=== PATIENT | male | born 1945 | race Caucasian/White ===

== ENCOUNTER 2016-10-10 17:50 | Emergency (ER) | payer MEDICARE, OTHER ==
[2016-10-10 18:14] VITALS: BP 80/58
[2016-10-10] MEDS ORDERED: NS 0.9% 1000 ML* 1,000 ML BOLUS ONE ×2 (18:25→19:05)
--- NOTE | 2016-10-10 18:40 | UC ---
Minor Trauma HPI - HPI Summary HPI Summary: fall 1 1/2 days ago unwitnessed seemed ok yesterday today c/o LUQ abd pain and has had vomiting according to son he is confused hx etoh abuse legally blind - History of Current Complaint Chief Complaint: UCTrauma Stated Complaint: RIB AND FACIAL INJURY WITH VOMITING Time Seen by Provider: 10/10/16 18:01 Hx Obtained From: Patient, Family/Territory Manager Onset/Duration: Sudden Onset Onset Of Pain: Immediate Severity Initially: Mild Severity Currently: Moderate Pain Intensity: 7 Pain Scale Used: 0-10 Numeric Mechanism Of Injury: Fall From A Standing Position Aggravating Factor(s): Nothing Alleviating Factor(s): Nothing Associated Signs And Symptoms: Positive: Ecchymosis - Allergies/Home Medications Allergies/Adverse Reactions: Allergies Allergy/AdvReac Type Severity Reaction Status Date / Time Amoxicillin Allergy Rash Verified 06/06/15 15:48 Penicillins Allergy Altered Verified 10/10/16 17:59 Mental Status Home Medications: Home Medications Calcium W/ Vitamins D & K [Calcium + D + K 750-500-40 mg-Unt-Mcg] 10/10/16 [ History] Gabapentin CAP(*) [Neurontin 100 mg CAP(*)] 10/10/16 [History] Melatonin 10/10/16 [History] PMH/Surg Hx/FS Hx/Imm Hx Previously Healthy: Yes Endocrine History Of: Denies: Diabetes, Thyroid Disease Cardiovascular History Of: Denies: Cardiac Disorders, Hypertension Respiratory History Of: Denies: COPD, Asthma GI/ History Of: Denies: Ulcer - Surgical History Surgical History: Yes Surgery Procedure, Year, and Place: 4 surgeries on RIGHT foot. Hip Replacement LEFT - Family History Known Family History: Positive: Hypertension - Social History Alcohol Use: Daily Alcohol Amount: "every Night" rum Substance Use Type: None, Marijuana Substance Use Comment - Amount & Last Used: "Pot when I can get it" Smoking Status (MU): Never Smoked Tobacco - Immunization History Most Recent Influenza Vaccination: 2016 Review of Systems Constitutional: Negative Skin: Bruising Eyes: Negative ENT: Negative Respiratory: Negative Cardiovascular: Negative Gastrointestinal: Abdominal Pain, Vomiting Genitourinary: Negative Motor: Negative Neurovascular: Negative Musculoskeletal: Negative Neurological: Negative Psychological: Negative All Other Systems Reviewed And Are Negative: Yes Physical Exam Triage Information Reviewed: Yes Appearance: Ill-Appearing Vital Signs: Initial Vital Signs Temp 98.1 F 10/10/16 18:01 Pulse 141 10/10/16 18:01 Resp 18 10/10/16 18:01 BP 80/58 10/10/16 18:01 Pulse Ox 92 10/10/16 18:01 Eyes: Positive: Conjunctiva Clear ENT: Positive: Hearing grossly normal Neck: Positive: Supple Respiratory: Positive: Lungs clear, Normal breath sounds, No respiratory distress, No accessory muscle use Cardiovascular: Positive: RRR, No Murmur, Tachycardia Abdomen Description: Negative: Nontender - tender LUQ, CVA Tenderness (R), CVA Tenderness (L) Bowel Sounds: Positive: Present Musculoskeletal: Positive: No Edema Neurological: Positive: Alert Psychological Exam: Normal Skin Exam: Normal - initially diaphoretic Re-Evaluation - Re-Evaluation First Eval Re-Evaluation Time: 19:06 Change: Improved - [place] arrived, after about one liter of NS BP 11/69, pulse 100 Pox 97% 2 L NC Minor Trauma Course/Dx - Course Course Of Treatment: d/w Dr. Isbell. He concurs that patient should be transported to a trauma center. Called [facility] transfer center...put through to ED and spoke to attending. Pt accepted - Differential Dx/Diagnosis Provider Diagnoses: fall. hypotension/tachycardia. LUQ abdominal pain/ ecchymosis Discharge - Discharge Plan Condition: Guarded Disposition: TRANS HIGHER LVL OF CARE FAC Referrals: Ana Luisa Berg MD [Primary Care Provider] - Images Head: 1 - contusion Front/Back of Body, Lg ([place]): 1 - ecchymosis 2 - ecchymosis 3 - tender
== END 2016-10-10 19:10 | disposition short-term general hospital (02) ==
LOC: UCEAST 17:50
DX: R10.12 Left upper quadrant pain (principal); S30.1XXA Contusion of abdominal wall, initial encounter; W19.XXXA Unspecified fall, initial encounter; Y93.9 Activity, unspecified; Y92.9 Unspecified place or not applicable; I95.9 Hypotension, unspecified; R00.0 Tachycardia, unspecified; H54.8 Legal blindness, as defined in USA; Z87.898 Personal history of other specified conditions; F12.90 Cannabis use, unspecified, uncomplicated
CPT/HCPCS: 93005; 96360; 96361; 99213; G0463

== ENCOUNTER 2017-03-10 14:14 | Inpatient (IN) | payer MEDICARE, OTHER ==
[2017-03-10] MEDS ORDERED: Diltiazem IV* 5 MG/ML 5 ML VIAL (for loading dose/IV Push) (25 MG) IV SLOW PU ONE (15:20)
[2017-03-10 15:28] LABS: Hematocrit 41 % (42-52); Hemoglobin 13.6 g/dl (14.0-18.0); Mean Corpuscular HGB Conc 34 g/dl (31-36); Mean Corpuscular Hemoglobin 34 pg (27-31); Mean Corpuscular Volume 102 fL (80-94); Mean Platelet Volume 10 um3 (7.4-10.4); Red Blood Count 4.01 10^6/ul (4.0-5.4); Red Cell Distribution Width 14 % (10.5-15); White Blood Count 6.3 10^3/ul (3.5-10.8)
[2017-03-10 15:41] LABS: Troponin I 0.01 ng/mL (<0.04)
[2017-03-10 15:43] LABS: Albumin 3.8 g/dL (3.2-5.2); BUN/Creatinine Ratio 14.1 (8-20); Calcium 9.1 mg/dL (8.6-10.3); EGFR African American 66.8 (>60); Globulin 2.9 g/dL (2-4); Potassium 4.4 mmol/L (3.5-5.0); Total Bilirubin 0.6 mg/dL (0.2-1.0); Total Protein 6.7 g/dL (6.4-8.9)
--- NOTE | 2017-03-10 15:49 | RAD ---
Indication: Arrhythmia. Single frontal view of the chest performed at 1544 hours was reviewed. No prior study. No mediastinal shift is noted. Heart is of normal size and configuration. Lung morgan appear clear. IMPRESSION: NO ACTIVE CARDIOPULMONARY DISEASE IS NOTED.
[2017-03-10 15:52] LABS: TSH (Thyroid Stimulating Horm) 3.53 mcIU/mL (0.34-5.60)
[2017-03-10] MEDS ORDERED: Gabapentin CAP(*) 300 MG PO ONE (16:20)
[2017-03-10] MEDS ORDERED: Metoprolol Tartrate IV* 1 MG/ML 5 ML VIAL IV PRN (16:26)
[2017-03-10] MEDS ORDERED: Ondansetron INJ* 2 MG/ML VIAL IV PRN (16:34)
[2017-03-10] MEDS ORDERED: NS 0.9% 1000 ML* 1,000 ML IV ONE (16:35)
[2017-03-10] MEDS ORDERED: Acetaminophen TAB* 325 MG PO PRN (16:41)
[2017-03-10] MEDS ORDERED: NS 0.9% 1000 ML* 1,000 ML IV SCH (16:45)
[2017-03-10 16:52] LABS: Magnesium 1.7 mg/dL (1.9-2.7)
[2017-03-10] MEDS ORDERED: Metoprolol Tartrate TAB* 25 MG PO SCH (17:00)
[2017-03-10] MEDS ORDERED: Thiamine IV* 100 MG, Folic Acid IV* 1 MG, Multiple Vitamin IV ADULT* 10 ML in NS 0.9% 1... IV ONE (17:09)
[2017-03-10] MEDS ORDERED: Magnesium Oxide TAB* 400 MG PO ONE (17:10)
[2017-03-10] MEDS ORDERED: MELATONIN 10 MG PO PRN (17:48)
[2017-03-10] MEDS ORDERED: LORazepam TAB(*) 1 MG PO SCH (18:00)
--- NOTE | 2017-03-10 18:25 | HP ---
HISTORY AND PHYSICAL:* ADDENDUM: Mr. Martinez is a 71-year-old male with a history of laryngeal cancer, who also has a history of significant alcohol use on a daily basis and who presents today after he was seen on a 6-month followup with Dr. Berg and was noted to have asymptomatic atrial fibrillation with rapid ventricular response. The patient is going to be placed on observation. Currently, his heart rate is controlled with Cardizem. Cardiology will see him for consultation. For further details of the patient's presentation and plan, please see history and physical dictated by Mimi Rodriguez NP, on 03/10/17, with which I agree. [id number]/[facility] #: [id number] MTDNhan
[2017-03-10] MEDS: Gabapentin CAP(*) 100 MG PO SCH (18:35)
[2017-03-10] MEDS: Apixaban* 5 MG TAB PO SCH (20:45)
[2017-03-10] MEDS: Metoprolol Tartrate TAB* 25 MG PO SCH (20:46)
[2017-03-10] MEDS: traZODone TAB* 50 MG TAB PO SCH (20:46)
--- NOTE | 2017-03-10 21:51 | HP ---
ATTENDING PHYSICIAN ADDENDUM NOW INCLUDED ON THIS REPORT CC: Ana Luisa Berg MD* MEDICINE HISTORY AND PHYSICAL: DATE OF ADMISSION: 03/09/17 PRIMARY CARE PHYSICIAN: Ana Luisa Berg MD PROVIDER: Kaylyn Mills NP ATTENDING PHYSICIAN: Alysia Mendez MD *(dictated by Kaylyn Mills NP) CONSULTING PHYSICIAN: Markos Kruse MD, Cardiology CHIEF COMPLAINT: Sent by PCP for new-onset AFib. HISTORY OF PRESENT ILLNESS: Mr. Martinez is a 71-year-old male patient who moved here from [place] approximately 2 years ago to be closer to his son. He reportedly did not receive good care in [place] and since moving here, has had a primary battery container finishing hand who has accompanied the patient and is helping to provide some of the history. Mr. Martinez saw Dr. Berg this morning for a routine 6 months checkup. During the doctor's assessment, she noted that he had a regular rate rhythm. An EKG was done, and the patient was found to be in AFib with rapid RVR. Here in the ER, the patient had noted rates up to 160. He remained asymptomatic and continues to deny any chest pain, dizziness, shortness of breath, nausea, vomiting. He denies any recent fever, chills, or cold symptoms. He denies any abdominal pain, nausea, vomiting, diarrhea. He denies any orthopnea, difficulty sleeping, edema. He denies any dysuria, focal weakness, or sensory loss. He is legally blind. In the ER, the patient was treated with diltiazem and was able to achieve better rate control and he is certainly in the 80s to low 100s for his heart rate. PAST MEDICAL HISTORY: 1. Laryngeal cancer diagnosed in 1995. 2. Previous head and neck cancer. 3. 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 4. Major depressive disorder. 5. Alcohol abuse with alcohol-induced mood disorder. 6. History of rib fractures in September 2016. 7. The patient is legally blind. 8. Insomnia. 9. BPH. 10. Seborrheic dermatitis. 11. Pityriasis versicolor. 12. Tinea cruris. 13. 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 14. History of partial glossectomy related to squamous cell cancer. HOME MEDICATIONS: 1. Calcium vitamin D supplement 1 tab daily. 2. Ibuprofen 200 mg q.6 hours p.r.n. 3. Melatonin 10 mg at bedtime p.r.n. 4. Triamcinolone 0.025% cream 1 application topical daily p.r.n. 5. Ketoconazole 2% cream 1 application topical twice a week. 6. Cholecalciferol 50,000 units monthly. 7. Lindsay 5-325 one tab b.i.d. p.r.n. 8. Trazodone 75 mg at bedtime. 9. Omeprazole 20 mg daily. 10. Gabapentin 300 mg q.a.m. and 200 mg q.p.m. 11. Fluoxetine 20 mg daily. 12. Tamsulosin 0.4 mg daily. ALLERGIES: Include PENICILLIN and AMOXICILLIN, which causes a rash. FAMILY HISTORY: The patient is unable to provide, but denies any previous history of cancer, diabetes, or heart diseases in the family that he is aware of. SOCIAL HISTORY: The patient reports former tobacco use he states many years ago when he was 12 years old. He denies any current tobacco use. He reports drinking "half a gallon of rum each night." The patient's primary battery container finishing hand states that it is mostly water and a little bit of rum, but unable to quantify how much. The patient does report daily marijuana use. He lives at home by himself. He does have a private primary battery container finishing hand, who is in the house for 3 and a half hours a day. Her name is Yaneth. His son, Sorin Martinez, is his healthcare proxy. The patient does appear to be mostly independent with ADLs, but does have a battery container finishing hand for help with assistance and setup. He does use a rolling walker. REVIEW OF SYSTEMS: As per HPI. A 14-point review of systems was completed. All pertinent positives are included in the HPI, all others not mentioned are negative. PHYSICAL EXAMINATION GENERAL: Mr. Martinez is a very pleasant older male patient who is lying in the ED stretcher, in no acute distress. He is well-developed, well-nourished. VITAL SIGNS: Temperature 98, heart rate 84, respiratory rate 18, blood pressure 101/63, O2 saturation is 97% on room air. HEENT: Head is atraumatic, normocephalic. Face is symmetrical. The patient is legally blind. Hearing appears grossly intact. External ears and nose are normal. Oral mucosa is moist. There is no oropharyngeal erythema or exudate noted. NECK: Supple. No lymphadenopathy appreciated. No JVD noted. The patient has full range of motion to the neck. RESPIRATORY: Lungs are clear to auscultation bilaterally. There is no accessory muscle use. CARDIAC: Irregularly irregular rate and rhythm. No murmurs, rubs, or gallops appreciated. There is no lower extremity edema. The patient has 1+ distal pulses to the lower extremities. ABDOMEN: Soft, nontender, nondistended. Bowel sounds are present times all 4 quadrants. MUSCULOSKELETAL: There is no clubbing or cyanosis. The patient appears to have full range of motion to all major joints. SKIN: Limited assessment, but appears grossly intact. NEURO: The patient moves all extremities. There are no acute neurological deficits. The patient follows commands. PSYCH: He is alert and oriented x3. Affect is appropriate. LABORATORY DATA/DIAGNOSTIC STUDIES: CBC: WBC 6.3, hemoglobin 13.6, hematocrit 41, MCV 102, MCH 34, platelet count 199. CMP: Sodium 138, potassium 4.4, chloride 104, carbon dioxide 29, BUN 19, creatinine 1.35, glucose 110. Lactic acid 1.3. Calcium 9.1, magnesium 1.7, total bilirubin 0.6, AST 16, ALT 9, alk phos 55. Troponin was 0.01. BNP 153, albumin 3.8, TSH 3.53. EKG shows atrial fibrillation. No ST elevations or T wave inversions noted. Chest x-ray: No active cardiopulmonary disease is noted. Limited previous medical records, but old medical records were reviewed. ASSESSMENT AND PLAN: Mr. Martinez is a 71-year-old male patient who presented today for evaluation following an incidental finding of atrial fibrillation with RVR in his physician's office. He is admitted to the telemetry for plan is as follows: 1. Atrial fibrillation with RVR. This appears to be a new diagnosis. The patient has no previously known history of atrial fibrillation. I suspect that he has been in and out of atrial fibrillation for a while. He remains asymptomatic. He has been presenting to the hospital with rates as high as 160. At this time, we will admit him, continue him on metoprolol b.i.d. with p.r.n. IV Lopressor for elevated heart rate. He is currently rate controlled and his pressures are on the softer side. I will continue him on IV fluids and he will be n.p.o. after midnight for potential cardioversion. Also ordered an echocardiogram. The patient has been started on apixaban. I did discuss with the patient his chronic alcohol use and states that this may have caused his atrial fibrillation as well as increased his risk for bleeds and adverse events if he continues to drink while being on apixaban. I did explain that his atrial fibrillation does increase his risk for stroke as well as increases his risk for bleeding. The patient was advised to quit alcohol drinking, and he verbalized understanding of this. The patient's CHAD2- VASc score is 1 for age 65 to 74. Monitor electrolytes with a goal keeping of potassium greater than 4 and magnesium greater than 2. 2. Macrocytic anemia. I will check a B12 and folate, but I do suspect this is likely secondary to the patient's alcohol abuse. He will receive a banana bag. We will also replace his magnesium. Also, check the patient overnight via the [facility] protocol to monitor for acute withdrawal. 3. Elevated creatinine. From previous labs, his creatinine does appear to be within the patient's baseline and we will attempt to obtain some records from Dr. Berg's office in order to better understand what the patient's baseline creatinine is. I do not see a diagnosis of chronic kidney disease on his from the office. However, I suspect that this is not new. 4. Hypomagnesemia. Replete with IV magnesium. Recheck in the morning. 5. Glossodynia. Continue gabapentin and p.r.n. hydrocodone. 6. History of depression. Continue trazodone and fluoxetine. 7. Insomnia. Continue p.r.n. melatonin. 8. Benign prostatic hypertrophy. Continue tamsulosin. 9. FEN. The patient is ordered a heart healthy diet. No caffeine. He will be n.p.o. for midnight for potential cardioversion. Continue IV hydration. 10. DVT prophylaxis. The patient will be started on apixaban. Continue education regarding alcohol cessation. 11. Code status, the patient is a full code. TIME SPENT: Time spent on the admission was approximately 60 minutes, more than half the time was spent [id number] with the patient obtaining history and physical, performing the physical examination, and reviewing the plan of care. Plan of care was discussed with my attending, Dr. Mendez, who is in agreement. KAYLYN MILLS NP ADDENDUM: Mr. Martinez is a 71-year-old male with a history of laryngeal cancer, who also has a history of significant alcohol use on a daily basis and who presents today after he was seen on a 6-month followup with Dr. Berg and was noted to have asymptomatic atrial fibrillation with rapid ventricular response. The patient is going to be placed on observation. Currently, his heart rate is controlled with Cardizem. Cardiology will see him for consultation. For further details of the patient's presentation and plan, please see history and physical dictated by Kaylyn Mills NP, on 03/10/17, with which I agree. ALYSIA MENDEZ MD [id number]/[facility] #: [id number]/[facility] #: [id number] ABRAN
[2017-03-11] MEDS: HYDROcodone/ACETAMIN 5-325 MG* 1 TAB PO PRN ×2 (06:06→17:34)
[2017-03-11 07:04] LABS: Hematocrit 38 % (42-52); Hemoglobin 12.6 g/dl (14.0-18.0); Mean Corpuscular HGB Conc 33 g/dl (31-36); Mean Corpuscular Hemoglobin 34 pg (27-31); Mean Corpuscular Volume 102 fL (80-94); Mean Platelet Volume 9 um3 (7.4-10.4); Red Blood Count 3.68 10^6/ul (4.0-5.4); Red Cell Distribution Width 14 % (10.5-15); White Blood Count 5.6 10^3/ul (3.5-10.8)
[2017-03-11 07:23] LABS: Anion Gap 5 mmol/L (2-11); BUN/Creatinine Ratio 14.5 (8-20); Blood Urea Nitrogen 17 mg/dL (6-24); CO2 Carbon Dioxide 25 mmol/L (22-32); Calcium 8.4 mg/dL (8.6-10.3); Chloride 108 mmol/L (101-111); EGFR African American 78.8 (>60); EGFR Non-African American 61.3 (>60); Glucose 91 mg/dL (70-100); Magnesium 2.1 mg/dL (1.9-2.7); Potassium 4.3 mmol/L (3.5-5.0); Sodium 138 mmol/L (133-145)
[2017-03-11 07:48] LABS: Folate > 20.00 ng/mL (>3.99)
[2017-03-11 07:49] LABS: Vitamin B12 534 pg/mL (180-914)
[2017-03-11] MEDS: Thiamine TAB* 100 MG TAB PO SCH (09:46)
[2017-03-11] MEDS: Multivitamins/Minerals TAB PO SCH (09:46)
[2017-03-11] MEDS: Omeprazole CAP* 20 MG PO SCH (09:46)
[2017-03-11] MEDS: FLUoxetine CAP* 20 MG PO SCH (09:46)
[2017-03-11] MEDS: Gabapentin CAP(*) 300 MG PO SCH (09:47)
[2017-03-11] MEDS: Calcium/Vitamin D TAB 250/125* TAB PO SCH (09:47)
[2017-03-11] MEDS: Metoprolol Tartrate TAB* 25 MG PO SCH ×2 (09:48→21:26)
[2017-03-11] MEDS: Tamsulosin CAP* 0.4 MG PO SCH (09:49)
[2017-03-11] MEDS: Folic Acid TAB* 1 MG PO SCH (09:49)
[2017-03-11] MEDS: Apixaban* 5 MG TAB PO SCH ×2 (09:49→21:26)
--- NOTE | 2017-03-11 10:14 | PN ---
Subjective Date of Service: 03/11/17 Interval History: Patient seen and examined at bedside. Son is accompanying patient. He denies CP , SOB, abd pain, n/v, dizziness. He feels well, except for "not sleeping well." No acute concerns at this time expressed by son or patient. Telemetry: Afib 80s-100s Objective Active Medications: Acetaminophen (Tylenol Tab*) 650 mg PO Q4H PRN PRN Reason: FEVER/PAIN Last Admin: 03/10/17 21:14 Dose: 650 mg Hydrocodone Bitart/Acetaminophen (Irving 5-325 Tab*) 1 tab PO BID PRN PRN Reason: PAIN Last Admin: 03/11/17 06:06 Dose: 1 tab Apixaban (Eliquis*) 5 mg PO BID [facility] Last Admin: 03/11/17 09:49 Dose: 5 mg Calcium/Vitamin D (Oscal D Tab 250/125*) 2 tab PO DAILY [facility] Last Admin: 03/11/17 09:47 Dose: 2 tab Fluoxetine HCl (Prozac Cap*) 20 mg PO DAILY [facility] Last Admin: 03/11/17 09:46 Dose: 20 mg Folic Acid (Folvite Tab*) 1 mg PO DAILY [facility] Last Admin: 03/11/17 09:49 Dose: 1 mg Gabapentin (Neurontin Cap(*)) 200 mg PO QPM [facility] Last Admin: 03/10/17 18:35 Dose: 200 mg Gabapentin (Neurontin Cap(*)) 300 mg PO QAM [facility] Last Admin: 03/11/17 09:47 Dose: 300 mg Lorazepam (Ativan Tab(*)) 0 mg PO .PER WAM SCORE [facility] PRN Reason: Protocol Metoprolol Tartrate (Lopressor Iv*) 5 mg IV Q6H PRN PRN Reason: HEART RATE/PULSE Metoprolol Tartrate (Lopressor Tab*) 25 mg PO BID [facility] Last Admin: 03/11/17 09:48 Dose: 25 mg Multivitamins/Minerals (Theragran/Minerals Tab*) 1 tab PO DAILY [facility] Last Admin: 03/11/17 09:46 Dose: 1 tab Non-Formulary Medication (Melatonin [Melatonin Cr]) 10 mg PO BEDTIME PRN PRN Reason: INSOMNIA Omeprazole (Prilosec Cap*) 20 mg PO DAILY [facility] Last Admin: 03/11/17 09:46 Dose: 20 mg Ondansetron HCl (Zofran Inj*) 4 mg IV Q6H PRN PRN Reason: NAUSEA/VOMITING Tamsulosin HCl (Flomax Cap*) 0.4 mg PO DAILY [facility] Last Admin: 03/11/17 09:49 Dose: 0.4 mg Thiamine HCl (Vitamin B-1 Tab*) 100 mg PO DAILY [facility] Last Admin: 03/11/17 09:46 Dose: 100 mg Trazodone HCl (Desyrel Tab*) 75 mg PO BEDTIME [facility] Last Admin: 03/10/17 20:46 Dose: 75 mg Triamcinolone Acetonide (Triamcinolone 0.025% Oint *) 1 applic TOPICAL DAILY PRN PRN Reason: ITCHING Vital Signs 03/10/17 03/10/17 03/10/17 16:21 16:24 16:30 Temperature 97.6 F Pulse Rate 104 117 92 Respiratory 18 18 14 Rate Blood Pressure 109/81 110/67 92/73 (mmHg) O2 Sat by Pulse 99 97 97 Oximetry 03/10/17 03/10/17 03/10/17 16:34 16:37 16:40 Temperature Pulse Rate 77 66 Respiratory 18 22 21 Rate Blood Pressure 100/76 104/50 (mmHg) O2 Sat by Pulse 95 97 Oximetry 03/10/17 03/10/17 03/10/17 16:45 16:50 16:55 Temperature Pulse Rate 88 80 73 Respiratory 17 13 17 Rate Blood Pressure 98/83 95/61 104/54 (mmHg) O2 Sat by Pulse 96 97 97 Oximetry 03/10/17 03/10/17 03/10/17 17:00 17:05 17:10 Temperature Pulse Rate 81 72 64 Respiratory 17 18 12 Rate Blood Pressure 101/63 115/96 94/41 (mmHg) O2 Sat by Pulse 97 97 97 Oximetry 03/10/17 03/10/17 03/10/17 17:15 17:20 17:26 Temperature Pulse Rate 75 76 57 Respiratory 17 18 Rate Blood Pressure 98/65 107/78 (mmHg) O2 Sat by Pulse 99 98 98 Oximetry 03/10/17 03/10/17 03/10/17 18:34 18:35 19:11 Temperature 97.4 F Pulse Rate 68 Respiratory 18 18 20 Rate Blood Pressure 97/71 (mmHg) O2 Sat by Pulse 96 Oximetry 03/10/17 03/10/17 03/10/17 19:50 19:56 20:35 Temperature 97.9 F 97.9 F Pulse Rate 111 111 Respiratory 20 20 16 Rate Blood Pressure 113/50 113/50 (mmHg) O2 Sat by Pulse 97 97 Oximetry 03/10/17 03/10/17 03/11/17 21:06 21:08 00:11 Temperature 97.5 F 97.5 F 97.2 F Pulse Rate 120 120 114 Respiratory 20 20 16 Rate Blood Pressure 110/74 110/74 100/80 (mmHg) O2 Sat by Pulse 94 94 98 Oximetry 03/11/17 03/11/17 03/11/17 05:04 06:06 07:13 Temperature 98.0 F 97.7 F Pulse Rate 103 67 Respiratory 16 16 16 Rate Blood Pressure 98/75 92/73 (mmHg) O2 Sat by Pulse 98 97 Oximetry 03/11/17 03/11/17 03/11/17 08:06 09:08 09:47 Temperature 98.5 F Pulse Rate 91 Respiratory 16 20 16 Rate Blood Pressure 116/82 (mmHg) O2 Sat by Pulse 97 Oximetry Oxygen Devices in Use Now: None Appearance: Male patient, lying in bed, NAD Eyes: - - legally blind Ears/Nose/Mouth/Throat: Mucous Membranes Moist Neck: NL Appearance and Movements; NL JVP Respiratory: Symmetrical Chest Expansion and Respiratory Effort, Clear to Auscultation Cardiovascular: - - irregularly irregular rate/rhythm Abdominal: NL Sounds; No Tenderness; No Distention Extremities: No Edema Neurological: Alert and Oriented x 3 Lines/Tubes/Other Access: Clean, Dry and Intact Peripheral IV Result Diagrams: 03/11/17 06:41 03/11/17 06:41 Assess/Plan/Problems-Billing Assessment: Mr. Martinez is a 71 yo male with a PMH significant for laryngeal and head/neck ca s/p partial glossectomy, ETOH abuse, and depression who was sent to the ED on 03/10 by PCP for new onset afib with RVR. - Patient Problems (1) Atrial fibrillation Code(s): I48.91 - UNSPECIFIED ATRIAL FIBRILLATION Comment: With RVR, now rate controlled Cardiology following No previously known dx Echocardiogram pending; no CLAUDAI or cardioversion, given pt's hx of head/neck ca Continue metoprolol, apixaban Patient advised to discontinue ETOH use with apixaban. Outpatient f/u with cardiology in 3 weeks. (2) Macrocytosis Code(s): D75.89 - OTHER SPECIFIED DISEASES OF BLOOD AND BLOOD-FORMING ORGANS Comment: Mild anemia, though suspect some dilutional effect B12 and folate normal, suspect related to chronic ETOH use Continue to trend HH Outpatient follow-up (3) Elevated serum creatinine Code(s): R79.89 - OTHER SPECIFIED ABNORMAL FINDINGS OF BLOOD CHEMISTRY Comment : Resolved (4) Hypomagnesemia Code(s): E83.42 - HYPOMAGNESEMIA Comment: Repleted, now resolved (5) Glossodynia Code(s): K14.6 - GLOSSODYNIA Comment: Continue gabapentin, prn Irving. (6) Depression Code(s): F32.9 - MAJOR DEPRESSIVE DISORDER, SINGLE EPISODE, UNSPECIFIED Comment: Continue fluoxetine, trazodone. (7) Insomnia Code(s): G47.00 - INSOMNIA, UNSPECIFIED Comment: Continue trazodone, prn melatonin (8) BPH (benign prostatic hyperplasia) Code(s): N40.0 - BENIGN PROSTATIC HYPERPLASIA WITHOUT LOWER URINRY TRACT SYMP Comment: Continue tamsulosin. (9) Legal blindness Code(s): H54.8 - LEGAL BLINDNESS, DEFINED IN [place] (10) DVT prophylaxis Status and Disposition: OBV to inpatient admit. Anticipate potential dc to home tomorrow.
--- NOTE | 2017-03-11 15:19 | ECHO ---
Patient: [facility] Rec#: [id number] : 1945 Date: 03/11/2017 Age: 71y Height: 167.64 cm / 66.0 in Weight: 93.89 kg / 206.9 lbs Sex: M BSA: 2.03 Room#: 440 Admit Date#: 03/10/2017 Type: Inpatient Referring: Mimi Rodriguez Reading: Rajesh Alex MD Pipe Insulator: Pat Calero RDCS CC: Ana Luisa Berg MD Transthoracic Echocardiogram Indication: A-Fib BP: 98/75 HR: 111 Rhythm: A-Fib Indications Atrial Fibrillation Findings History: Laryngeal, head, and neck cancer, major depressive disorder, ETOH abuse, legally blind, daily marijuana use, former smoker. Technical Comments: The study quality is fair. The study is technically limited due to patient body habitus. Completed at 1435. Left Ventricle: The left ventricular chamber size is normal. Mild concentric left ventricular hypertrophy is observed. Mild global hypokinesis of the left ventricle is observed. There is mildly decreased left ventricular systolic function.Of note normal LV contractility is noted on longer R to R intervals. The estimated ejection fraction is 45-50%. The assessment of diastolic function is non-diagnostic. Left Atrium: The left atrium is moderately dilated. Right Ventricle: The right ventricular cavity size is normal. The right ventricular global systolic function is mildly reduced. Right Atrium: The right atrium is mild to moderately dilated. Aortic Valve: The aortic valve is trileaflet. The aortic valve leaflets are mildly thickened. There is no evidence of aortic regurgitation. There is no evidence of aortic stenosis. Mitral Valve: The mitral valve leaflets are mildly thickened. There is mild to moderate mitral regurgitation. There is no evidence of mitral stenosis. Tricuspid Valve: The tricuspid valve leaflets are normal. There is mild to moderate tricuspid regurgitation. There is evidence of mild pulmonary hypertension. There is no tricuspid stenosis. Pulmonic Valve: The pulmonic valve appears normal. There is a trace pulmonic regurgitation. There is no pulmonic stenosis. Pericardium: There is no significant pericardial effusion. A pericardial fat pad is visualized. Aorta: There is no dilatation of the ascending aorta. There is no dilatation of the aortic arch. There is no dilation of the aortic root. Pulmonary Artery: The main pulmonary artery appears normal. Venous: The inferior vena cava appears normal in size. There is an approximate 50% respiratory change in the inferior vena cava dimension. Conclusions The study is technically limited due to patient body habitus. Completed at 1435. Mild concentric left ventricular hypertrophy is observed. Mild concentric left ventricular hypertrophy is observed. Mild global hypokinesis of the left ventricle is observed. There is mildly decreased left ventricular systolic function. The estimated ejection fraction is 45-50%. The left atrium is moderately dilated. There is mild to moderate mitral regurgitation. There is mild to moderate tricuspid regurgitation. There is evidence of mild pulmonary hypertension. There is a trace pulmonic regurgitation. The patient is noted to be in atrial fibrillation with a moderate ventricular response which may lead to underestimating LV systolic function. No reports of prior studies are offered for comparison. Measurements Name Value Normal Range RVIDd (AP) 2D 2.7 cm (0.9 - 2.6) RVDdMajor (2D) 3.7 cm (2.2 - 4.4) RAd ISD 4CH 5.4 cm (3.4 - 4.9) RA (A4C)W 5.2 cm (2.9 - 4.6) IVSd (2D) 1.1 cm (0.6 - 1) LVPWd (2D) 1.2 cm (0.6 - 1) LVIDd (2D) 4.6 cm (3.6 - 5.4) LVIDs (2D) 3.9 cm - LV FS (2D) 15 % (25 - 45) Aortic Annulus 1.8 cm (1.4 - 2.6) Ao root diameter (2D) 3.3 cm (2.1 - 3.5) Ascending Ao 3.1 cm (2.1 - 3.4) Aortic arch 3.2 cm (1.8 - 3.4) LA dimension (AP) 2D 5 cm (2.3 - 3.8) LAd ISD 4CH 6.2 cm (2.9 - 5.3) LA ISD 4CH W 4.9 cm (2.5 - 4.5) Name Value Normal Range LA ESV SP 4CH (A/L) 102 ml - LA ESV SP 2CH (A/L) 73 ml - LA ESV BP (A/L) 92 ml - LA ESV BP (A/L) index 45.51 ml/m2 - LA ESV SP 4CH (MOD) 93 ml - LA ESV SP 2CH (MOD) 70 ml - Name Value Normal Range MV E-wave Vmax 0.99 m/sec - MV deceleration time 166.5 msec - LV septal e' Vmax 0.07 m/sec - LV lateral e' Vmax 0.1 m/sec - LV E:e' septal ratio 14.14 ratio - LV E:e' lateral ratio 9.9 ratio - Name Value Normal Range AV Vmax 1 m/sec - AV VTI 16.8 cm - AV peak gradient 3.92 mmHg - AV mean gradient 2.41 mmHg - LVOT Vmax 0.71 m/sec - LVOT VTI 11.99 cm - LVOT peak gradient 2.02 mmHg - LVOT mean gradient 1.12 mmHg - RAINA Vmax 0.4 m/sec - Name Value Normal Range MR Vmax 4.66 m/sec - MR VTI 130.7 cm - Name Value Normal Range TR Vmax 2.89 m/sec - TR peak gradient 33 mmHg - RAP 8 mmHg - RVSP 41 mmHg - IVC diameter 2 cm - Name Value Normal Range PV Vmax 0.7 m/sec - PV peak gradient 2.03 mmHg -
--- NOTE | 2017-03-11 15:54 | CONS ---
CC: Ana Luisa Berg MD * CARDIOLOGY CONSULTATION: DATE OF CONSULT: 03/11/17. INDICATION FOR CONSULTATION: Atrial fibrillation. HISTORY OF PRESENT ILLNESS: The patient is a 71-year-old gentleman with a history of BPH, alcohol abuse, depression, who was seen by his primary care physician yesterday and found to be in atrial fibrillation. In speaking with the patient, I cannot elicit any cardiac symptoms. He denies any chest pain, shortness of breath, no orthopnea or PND. No palpitations. No syncope. The patient has had falls in the past. The patient states that he will fall once or twice a year usually going from a sitting to standing position. He denies any symptoms prior to these episodes. The patient's son states that the patient was in hospital in [place] after a fall. There was no mention of atrial fibrillation at that hospitalization. The patient came to emergency room from Dr. Berg's office. He was found to be in AFib with rapid ventricular response. PAST MEDICAL HISTORY: Significant for BPH, laryngeal cancer, status post resection, alcohol abuse, depressive disorder. OUTPATIENT MEDICATIONS: Triamcinolone cream, ketoconazole cream, calciferol 5000 units monthly, oxycodone, trazodone 75 mg q.h.s., omeprazole 20 mg a day, gabapentin 300 mg in the morning and 200 mg at night, fluoxetine 20 mg a day, tamsulosin 0.4 mg a day. ALLERGIES: He is intolerant of PENICILLIN and AMOXICILLIN. SOCIAL HISTORY: He is legally blind. He moved here from [place] to be closer to his son. He lives independently. He does drink half a bottle of rum a day. He denies tobacco use. FAMILY HISTORY: No family history of early coronary artery disease or cardiac arrhythmia. PHYSICAL EXAMINATION: Height is 5 feet 6 inches, weight is 207 pounds, heart rate 91 and irregular, blood pressure 116/72, respiratory rate is 16, oxygen saturation 97% on room air. Sclerae anicteric. Oropharynx is pink without erythema. Carotids are 2+ without bruits. JVD is normal. Thyroid is normal. Cardiac: S1, S2 without any murmurs, rubs, or gallops. Heart rate is irregular. PMI is normal. Lungs: Clear to auscultation bilaterally. There is no dullness to percussion. Abdomen: Obese, soft, nontender, and nondistended with normoactive bowel sounds. Extremities: Show no edema. He has 2+ pulses throughout. The patient is awake, alert, and oriented. He moves all 4 extremities equally. LABORATORY STUDIES: White count 5.6, hemoglobin 12, hematocrit 38, platelet count 180. Chemistries within normal limits. BUN 17, creatinine 1.17. Troponins are negative x3. TSH is normal. EKG demonstrates atrial fibrillation , otherwise unremarkable. IMPRESSION: The patient is a 71-year-old gentleman with no cardiac history, who presents to the emergency room in atrial fibrillation. He was seen by his primary care physician and found to be in atrial fibrillation. It is unclear how long he has been in atrial fibrillation. I cannot elicit any specific symptoms associated with his atrial fibrillation. The patient has already been started on rate control agents and anticoagulation. The patient is on Eliquis 5 mg b.i.d. and metoprolol 25 mg b.i.d. I had a long discussion with the patient and his son regarding the aspects of the atrial fibrillation. The patient does not have any symptoms, does not necessarily need cardioversion. The patient does have a history of laryngeal cancer with neck dissection. I am not comfortable recommending a transesophageal echocardiogram at this time. For now the recommendation is for the patient to have rate control and anticoagulation. I will see the patient in followup in 3 weeks. The patient will have an echocardiogram here in the hospital. [id number]/CPS #: [id number] MTDD
[2017-03-11] MEDS: Gabapentin CAP(*) 100 MG PO SCH (17:33)
[2017-03-11] MEDS: traZODone TAB* 50 MG TAB PO SCH (21:27)
[2017-03-11] MEDS ORDERED: CMCS: Melatonin (NF) 3 MG TAB PO PRN (22:24)
[2017-03-12] MEDS ORDERED: Metoprolol Tartrate TAB* 50 mg PO SCH ×2 (08:48→21:00)
[2017-03-12 08:50] LABS: BUN/Creatinine Ratio 12.9 (8-20); EGFR African American 68.6 (>60); EGFR Non-African American 53.3 (>60); Magnesium 1.7 mg/dL (1.9-2.7); Potassium 4.3 mmol/L (3.5-5.0)
[2017-03-12] MEDS: Calcium/Vitamin D TAB 250/125* TAB PO SCH (08:56)
[2017-03-12] MEDS: Omeprazole CAP* 20 MG PO SCH (08:56)
[2017-03-12] MEDS: Gabapentin CAP(*) 300 MG PO SCH (08:57)
--- NOTE | 2017-03-12 08:57 | PN ---
Subjective Date of Service: 03/12/17 Interval History: Patient seen and examined at bedside. He is OOB to chair for breakfast. Patient noted to be in RVR in 140s-150s on telemetry. Patient denies dizziness, CP, SOB , n/v He states, "I'm getting out of here, I hate hospitals." I explained my concern for his rapid rate right now; patient agrees to take medication but wants to go home as soon as possible. Family History: Unchanged from Admission Social History: Unchanged from Admission Past Medical History: Unchanged from Admission Objective Active Medications: Acetaminophen (Tylenol Tab*) 650 mg PO Q4H PRN PRN Reason: FEVER/PAIN Last Admin: 03/10/17 21:14 Dose: 650 mg Hydrocodone Bitart/Acetaminophen ([place] 5-325 Tab*) 1 tab PO BID PRN PRN Reason: PAIN Last Admin: 03/11/17 17:34 Dose: 1 tab Apixaban (Eliquis*) 5 mg PO BID [facility] Last Admin: 03/11/17 21:26 Dose: 5 mg Calcium/Vitamin D (Oscal D Tab 250/125*) 2 tab PO DAILY [facility] Last Admin: 03/11/17 09:47 Dose: 2 tab Fluoxetine HCl (Prozac Cap*) 20 mg PO DAILY [facility] Last Admin: 03/11/17 09:46 Dose: 20 mg Folic Acid (Folvite Tab*) 1 mg PO DAILY [facility] Last Admin: 03/11/17 09:49 Dose: 1 mg Gabapentin (Neurontin Cap(*)) 200 mg PO QPM [facility] Last Admin: 03/11/17 17:33 Dose: 200 mg Gabapentin (Neurontin Cap(*)) 300 mg PO QAM [facility] Last Admin: 03/11/17 09:47 Dose: 300 mg Lorazepam (Ativan Tab(*)) 0 mg PO .PER WAM SCORE [facility] PRN Reason: Protocol Melatonin (Melatonin (Nf)) 3 mg PO BEDTIME PRN PRN Reason: SLEEP Metoprolol Tartrate (Lopressor Iv*) 5 mg IV Q6H PRN PRN Reason: HEART RATE/PULSE Metoprolol Tartrate (Lopressor Tab*) 25 mg PO TID [facility] Multivitamins/Minerals (Theragran/Minerals Tab*) 1 tab PO DAILY [facility] Last Admin: 03/11/17 09:46 Dose: 1 tab Non-Formulary Medication (Melatonin [Melatonin Cr]) 10 mg PO BEDTIME PRN PRN Reason: INSOMNIA Omeprazole (Prilosec Cap*) 20 mg PO DAILY [facility] Last Admin: 03/11/17 09:46 Dose: 20 mg Ondansetron HCl (Zofran Inj*) 4 mg IV Q6H PRN PRN Reason: NAUSEA/VOMITING Tamsulosin HCl (Flomax Cap*) 0.4 mg PO DAILY [facility] Last Admin: 03/11/17 09:49 Dose: 0.4 mg Thiamine HCl (Vitamin B-1 Tab*) 100 mg PO DAILY [facility] Last Admin: 03/11/17 09:46 Dose: 100 mg Trazodone HCl (Desyrel Tab*) 75 mg PO BEDTIME [facility] Last Admin: 03/11/17 21:27 Dose: 75 mg Triamcinolone Acetonide (Triamcinolone 0.025% Oint *) 1 applic TOPICAL DAILY PRN PRN Reason: ITCHING Vital Signs 03/11/17 03/11/17 03/11/17 15:08 17:33 17:34 Temperature 97.4 F Pulse Rate 45 Respiratory 16 18 18 Rate Blood Pressure 99/55 (mmHg) O2 Sat by Pulse 94 Oximetry 03/11/17 03/11/17 03/11/17 18:06 19:33 19:34 Temperature Pulse Rate 78 Respiratory 16 16 16 Rate Blood Pressure 97/64 (mmHg) O2 Sat by Pulse 95 Oximetry 03/11/17 03/11/17 03/11/17 20:00 20:01 21:19 Temperature 97.3 F Pulse Rate 50 71 Respiratory 16 22 Rate Blood Pressure 83/58 115/73 (mmHg) O2 Sat by Pulse 96 Oximetry 03/11/17 03/12/17 03/12/17 23:11 00:43 03:04 Temperature 97.3 F 97.4 F 97.4 F Pulse Rate 64 115 118 Respiratory 16 16 16 Rate Blood Pressure 108/71 113/76 113/99 (mmHg) O2 Sat by Pulse 98 92 99 Oximetry 03/12/17 03/12/17 05:34 07:27 Temperature 97.5 F 98.1 F Pulse Rate 131 129 Respiratory 16 16 Rate Blood Pressure 129/93 120/78 (mmHg) O2 Sat by Pulse 97 97 Oximetry Oxygen Devices in Use Now: None Appearance: Older male, OOB to chair, NAD Ears/Nose/Mouth/Throat: Mucous Membranes Moist Respiratory: Symmetrical Chest Expansion and Respiratory Effort, Clear to Auscultation Cardiovascular: - - irregularly irregular HR, tachycardic Abdominal: NL Sounds; No Tenderness; No Distention Extremities: No Edema Neurological: Alert and Oriented x 3 Lines/Tubes/Other Access: Clean, Dry and Intact Peripheral IV Nutrition: Taking PO's Result Diagrams: 03/11/17 06:41 03/12/17 08:27 Assess/Plan/Problems-Billing Assessment: Mr. Martinez is a 71 yo male with a PMH significant for laryngeal and head/neck ca s/p partial glossectomy, ETOH abuse, and depression who was sent to the ED on 03/10 by PCP for new onset afib with RVR. - Patient Problems (1) Atrial fibrillation Code(s): I48.91 - UNSPECIFIED ATRIAL FIBRILLATION Comment: With RVR Noted to be in 100s and 110s overnight, now in 130s-140s Cardiology following No previously known dx Echocardiogram shows mildly decreased LVEF 45-50%, mild to moderate MR and TR, evidence of mild pulmonary HTN. Continue metoprolol, apixaban. Increase metoprolol dosing. Patient advised to discontinue ETOH use with apixaban. Outpatient f/u with cardiology in 3 weeks. 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 (6) Depression Code(s): F32.9 - MAJOR DEPRESSIVE DISORDER, SINGLE EPISODE, UNSPECIFIED Comment: Continue fluoxetine, trazodone. (7) Insomnia Code(s): G47.00 - INSOMNIA, UNSPECIFIED Comment: Continue trazodone, prn melatonin (8) BPH (benign prostatic hyperplasia) Code(s): N40.0 - BENIGN PROSTATIC HYPERPLASIA WITHOUT LOWER URINRY TRACT SYMP Comment: Continue tamsulosin. (9) Legal blindness Code(s): H54.8 - LEGAL BLINDNESS, DEFINED IN [place] (10) DVT prophylaxis Status and Disposition: OBV to inpatient admit. Dc in 1-2 days.
[2017-03-12] MEDS ORDERED: Metoprolol Tartrate TAB* 25 MG PO SCH (09:00)
[2017-03-12] MEDS: Folic Acid TAB* 1 MG PO SCH (09:01)
[2017-03-12] MEDS: Multivitamins/Minerals TAB PO SCH (09:01)
[2017-03-12] MEDS: Thiamine TAB* 100 MG TAB PO SCH (09:02)
[2017-03-12] MEDS: Apixaban* 5 MG TAB PO SCH ×2 (09:02→21:45)
[2017-03-12] MEDS: FLUoxetine CAP* 20 MG PO SCH (09:02)
[2017-03-12] MEDS: Tamsulosin CAP* 0.4 MG PO SCH (09:03)
[2017-03-12] MEDS: Moisturizing CREAM* 113 GM JAR TOPICAL SCH ×4 (09:30→22:09)
[2017-03-12] MEDS: HYDROcodone/ACETAMIN 5-325 MG* 1 TAB PO PRN (09:30)
[2017-03-12] MEDS ORDERED: Metoprolol Tartrate TAB* 25 MG PO ONE (09:56)
[2017-03-12] MEDS: Gabapentin CAP(*) 100 MG PO SCH (18:10)
[2017-03-12] MEDS: traZODone TAB* 50 MG TAB PO SCH (21:44)
[2017-03-12] MEDS: Triamcinolone 0.025% OINT * 15 GM TUBE TOPICAL PRN (21:45)
[2017-03-13] MEDS: HYDROcodone/ACETAMIN 5-325 MG* 1 TAB PO PRN (07:28)
[2017-03-13] MEDS ORDERED: Digoxin IV* 0.5 MG/2 ML AMP (0.25 MG/ML) IV SLOW PU ONE (08:59)
[2017-03-13] MEDS ORDERED: Metoprolol Tartrate TAB* 50 mg PO SCH (09:00)
[2017-03-13] MEDS ORDERED: Metoprolol Succinate XL TAB* 25 MG PO SCH (09:00)
[2017-03-13] MEDS ORDERED: Metoprolol Succinate XL TAB* 50 MG PO SCH (09:00)
[2017-03-13] MEDS: Triamcinolone 0.025% OINT * 15 GM TUBE TOPICAL PRN (10:06)
[2017-03-13] MEDS: Gabapentin CAP(*) 300 MG PO SCH (10:07)
[2017-03-13] MEDS: Tamsulosin CAP* 0.4 MG PO SCH (10:07)
[2017-03-13] MEDS: Thiamine TAB* 100 MG TAB PO SCH (10:08)
[2017-03-13] MEDS: FLUoxetine CAP* 20 MG PO SCH (10:08)
[2017-03-13] MEDS: Folic Acid TAB* 1 MG PO SCH (10:08)
[2017-03-13] MEDS: Multivitamins/Minerals TAB PO SCH (10:08)
[2017-03-13] MEDS: Omeprazole CAP* 20 MG PO SCH (10:08)
[2017-03-13] MEDS: Apixaban* 5 MG TAB PO SCH (10:09)
[2017-03-13] MEDS: Calcium/Vitamin D TAB 250/125* TAB PO SCH (10:09)
--- NOTE | 2017-03-13 10:53 | PN ---
Subjective Date of Service: 03/13/17 Interval History: Patient seen and examined at bedside. Mr. Martinez continues to state, "I feel fine." He denies CP, SOB, n/v, dizziness, fever/chills. He is very frustrated that he is still here. He understands that his heart rate is not beating properly but states, "What does it matter if I feel fine?" Education provided re : afib and risk of CVA and progressive heart failure with uncontrolled afib. Patient states, "I'm okay if I ." He is aware if he leaves today with his current rate in the 120s-140s, it will be against medical advice. Telemetry: Atrial fib, 118-136 Family History: Unchanged from Admission Social History: Unchanged from Admission Past Medical History: Unchanged from Admission Objective Active Medications: Acetaminophen (Tylenol Tab*) 650 mg PO Q4H PRN PRN Reason: FEVER/PAIN Last Admin: 03/10/17 21:14 Dose: 650 mg Hydrocodone Bitart/Acetaminophen ([place] 5-325 Tab*) 1 tab PO BID PRN PRN Reason: PAIN Last Admin: 03/13/17 07:28 Dose: 1 tab Apixaban (Eliquis*) 5 mg PO BID [facility] Last Admin: 03/13/17 10:09 Dose: 5 mg Calcium/Vitamin D (Oscal D Tab 250/125*) 2 tab PO DAILY [facility] Last Admin: 03/13/17 10:09 Dose: 2 tab Fluoxetine HCl (Prozac Cap*) 20 mg PO DAILY [facility] Last Admin: 03/13/17 10:08 Dose: 20 mg Folic Acid (Folvite Tab*) 1 mg PO DAILY [facility] Last Admin: 03/13/17 10:08 Dose: 1 mg Gabapentin (Neurontin Cap(*)) 200 mg PO QPM [facility] Last Admin: 03/12/17 18:10 Dose: 200 mg Gabapentin (Neurontin Cap(*)) 300 mg PO QAM [facility] Last Admin: 03/13/17 10:07 Dose: 300 mg Lorazepam (Ativan Tab(*)) 0 mg PO .PER WAM SCORE [facility] PRN Reason: Protocol Melatonin (Melatonin (Nf)) 3 mg PO BEDTIME PRN PRN Reason: SLEEP Metoprolol Tartrate (Lopressor Iv*) 5 mg IV Q6H PRN PRN Reason: HEART RATE/PULSE Metoprolol Tartrate (Lopressor Tab*) 50 mg PO Q12HR [facility] Last Admin: 03/13/17 10:09 Dose: 50 mg Multi-Ingredient Ointment (Hydrocerin*) 1 applic TOPICAL TID [facility] Last Admin: 03/12/17 22:09 Dose: Not Given Multivitamins/Minerals (Theragran/Minerals Tab*) 1 tab PO DAILY [facility] Last Admin: 03/13/17 10:08 Dose: 1 tab Non-Formulary Medication (Melatonin [Melatonin Cr]) 10 mg PO BEDTIME PRN PRN Reason: INSOMNIA Omeprazole (Prilosec Cap*) 20 mg PO DAILY [facility] Last Admin: 03/13/17 10:08 Dose: 20 mg Ondansetron HCl (Zofran Inj*) 4 mg IV Q6H PRN PRN Reason: NAUSEA/VOMITING Tamsulosin HCl (Flomax Cap*) 0.4 mg PO DAILY [facility] Last Admin: 03/13/17 10:07 Dose: 0.4 mg Thiamine HCl (Vitamin B-1 Tab*) 100 mg PO DAILY [facility] Last Admin: 03/13/17 10:08 Dose: 100 mg Trazodone HCl (Desyrel Tab*) 75 mg PO BEDTIME [facility] Last Admin: 03/12/17 21:44 Dose: 75 mg Triamcinolone Acetonide (Triamcinolone 0.025% Oint *) 1 applic TOPICAL DAILY PRN PRN Reason: ITCHING Last Admin: 03/13/17 10:06 Dose: 1 applic Vital Signs 03/12/17 03/12/17 03/12/17 10:57 11:30 11:36 Temperature 99.7 F Pulse Rate 118 Respiratory 18 16 16 Rate Blood Pressure 125/85 (mmHg) O2 Sat by Pulse 95 Oximetry 03/12/17 03/12/17 03/12/17 15:02 18:10 19:29 Temperature 97.1 F 97.7 F Pulse Rate 140 100 Respiratory 16 20 Rate Blood Pressure 112/78 98/50 (mmHg) O2 Sat by Pulse 95 100 Oximetry 03/12/17 03/12/17 03/12/17 20:00 20:10 22:03 Temperature Pulse Rate 103 Respiratory 18 16 Rate Blood Pressure 100/50 (mmHg) O2 Sat by Pulse Oximetry 03/13/17 03/13/17 03/13/17 00:15 03:43 04:15 Temperature 98.5 F 97.9 F Pulse Rate 114 132 108 Respiratory 16 16 Rate Blood Pressure 124/51 129/86 (mmHg) O2 Sat by Pulse 97 97 Oximetry 03/13/17 03/13/17 03/13/17 07:28 08:01 10:07 Temperature 99.4 F Pulse Rate 99 Respiratory 18 16 19 Rate Blood Pressure 122/71 (mmHg) O2 Sat by Pulse 96 Oximetry 03/13/17 03/13/17 10:09 10:29 Temperature Pulse Rate 106 Respiratory 17 Rate Blood Pressure (mmHg) O2 Sat by Pulse Oximetry Oxygen Devices in Use Now: None Appearance: Older male, lying in bed, NAD Eyes: - - legally blind Ears/Nose/Mouth/Throat: Mucous Membranes Moist Neck: NL Appearance and Movements; NL JVP Respiratory: Symmetrical Chest Expansion and Respiratory Effort, Clear to Auscultation Cardiovascular: No Edema, - - irregularly irregular rate/rhythm Abdominal: NL Sounds; No Tenderness; No Distention Neurological: Alert and Oriented x 3 Lines/Tubes/Other Access: Clean, Dry and Intact Peripheral IV Result Diagrams: 03/11/17 06:41 03/12/17 08:27 Assess/Plan/Problems-Billing Assessment: Mr. Martinez is a 71 yo male with a PMH significant for laryngeal and head/neck ca s/p partial glossectomy, ETOH abuse, and depression who was sent to the ED on 03/10 by PCP for new onset afib with RVR. - Patient Problems (1) Atrial fibrillation Code(s): I48.91 - UNSPECIFIED ATRIAL FIBRILLATION Comment: With RVR Rate still poorly controlled in high 110s-140s Continue BID metoprolol, apixaban, add digoxin today Cardiology following No previously known dx Echocardiogram shows mildly decreased LVEF 45-50%, mild to moderate MR and TR, evidence of mild pulmonary HTN. Patient advised to discontinue ETOH use with apixaban. Outpatient f/u with cardiology in 3 weeks. 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 (6) Depression Code(s): F32.9 - MAJOR DEPRESSIVE DISORDER, SINGLE EPISODE, UNSPECIFIED Comment: Continue fluoxetine, trazodone. (7) Insomnia Code(s): G47.00 - INSOMNIA, UNSPECIFIED Comment: Continue trazodone, prn melatonin (8) BPH (benign prostatic hyperplasia) Code(s): N40.0 - BENIGN PROSTATIC HYPERPLASIA WITHOUT LOWER URINRY TRACT SYMP Comment: Continue tamsulosin. (9) Legal blindness Code(s): H54.8 - LEGAL BLINDNESS, DEFINED IN [place] (10) DVT prophylaxis Status and Disposition: Inpatient admit. Dc in 1-2 days.
[2017-03-13 11:23] LABS: BUN/Creatinine Ratio 15.1 (8-20); Calcium 8.6 mg/dL (8.6-10.3); EGFR African American 72.3 (>60); EGFR Non-African American 56.3 (>60); Potassium 3.6 mmol/L (3.5-5.0)
[2017-03-13] MEDS: Moisturizing CREAM* 113 GM JAR TOPICAL SCH ×2 (11:35→15:21)
[2017-03-13 11:52] VITALS: BP 101/64
[2017-03-13] MEDS ORDERED: Potassium Chlor TAB* 20 MEQ TAB.ER PO ONE (15:30)
--- NOTE | 2017-03-14 11:12 | ED ---
Tegan Smith Thomas, scribed for Allen Robert MD on 03/10/17 at 1530 . Palpitations / Dysrhythmia - HPI Summary HPI Summary: Pt is a 71 y/o male presenting to the ED for further evaluation of abnormalities found on routine physical by PCP. The pt denies CP and SOB. The pt is legally blind. PMHx: throat, tongue, and skin cancer but no history of A- FIB, or COPD. SHx: former tobacco use. - History of Current Complaint Chief Complaint: EDDysrhythmPalp Time Seen by Provider: 03/10/17 14:27 Hx Obtained From: Patient, Family/Nurse Anesthetist Onset/Duration: Sudden Onset, Still Present Severity Currently: None Associated Signs & Symptoms: Negative - Allergy/Home Medications Allergies/Adverse Reactions: Allergies Allergy/AdvReac Type Severity Reaction Status Date / Time Amoxicillin Allergy Rash Verified 06/06/15 15:48 Penicillins Allergy Altered Verified 10/10/16 17:59 Mental Status Home Medications: Home Medications Calcium Carbonate-Cholecalcife [Calcium 600+D 600-800 mg-Unit] 1 tab PO DAILY [History Confirmed 03/10/17] Cholecalciferol [Vitamin D3] 50,000 unit PO MONTHLY 03/10/17 [History Confirmed 03/10/17] FLUoxetine CAP* [Prozac CAP*] 20 mg PO DAILY 03/10/17 [History Confirmed ] Gabapentin CAP(*) [Neurontin 100 mg CAP(*)] 200 mg PO QPM 03/10/17 [History Confirmed 03/10/17] Gabapentin CAP(*) [Neurontin 100 mg CAP(*)] 300 mg PO QAM 03/10/17 [History Confirmed 03/10/17] HYDROcodone/ACETAMIN 5-325 MG* [[place] 5-325 TAB*] 1 tab PO BID PRN 03/10/17 [ History Confirmed 03/10/17] Ibuprofen TAB* [Advil TAB*] 200 mg PO Q6HR PRN 03/10/17 [History Confirmed 03/10] Ketoconazole 2 % CREAM (NF) [Nizoral 2% CREAM (NF)] 1 applic TOPICAL .TWICE A WEEK 03/10/17 [History Confirmed 03/10/17] Melatonin [Melatonin Cr] 10 mg PO BEDTIME PRN 03/10/17 [History Confirmed ] Omeprazole CAP* [Prilosec CAP* 20 MG] 20 mg PO DAILY 03/10/17 [History Confirmed 03/10/17] Tamsulosin CAP* [Flomax CAP*] 0.4 mg PO DAILY 03/10/17 [History Confirmed ] Triamcinolone 0.025% CM(NF) [Kenalog Cream 0.025%*] 1 applic TOPICAL DAILY PRN 03/10/17 [History Confirmed 03/10/17] traZODone TAB* [Desyrel TAB*] 75 mg PO BEDTIME 03/10/17 [History Confirmed 03/10] PMH/Surg Hx/FS Hx/Imm Hx Previously Healthy: No Endocrine/Hematology History: Denies: Hx Diabetes, Hx Thyroid Disease Cardiovascular History: Denies: Hx Hypertension Respiratory History: Denies: Hx Asthma, Hx Chronic Obstructive Pulmonary Disease (COPD) GI History: Denies: Hx Ulcer - Cancer History Cancer Type, Location and Year: Throat. Tongue - Surgical History Surgery Procedure, Year, and Place: 4 surgeries on RIGHT foot. Hip Replacement LEFT Infectious Disease History: No Infectious Disease History: Denies: Hx Hepatitis, Hx Human Immunodeficiency Virus (HIV), History Other Infectious Disease, Traveled Outside the [place] in Last 30 Days - Family History Known Family History: Positive: Hypertension - Social History Alcohol Use: Daily Alcohol Amount: "every Night" rum Substance Use Type: Reports: None, Marijuana Substance Use Comment - Amount & Last Used: "Pot when I can get it" Smoking Status (MU): Never Smoked Tobacco Review of Systems Constitutional: Negative Eyes: Negative ENT: Negative Cardiovascular: Negative Negative: Chest Pain Respiratory: Negative Negative: Shortness Of Breath Gastrointestinal: Negative Genitourinary: Negative Musculoskeletal: Negative Skin: Negative Neurological: Negative Psychological: Normal All Other Systems Reviewed And Are Negative: Yes Physical Exam - Summary Physical Exam Summary: VITAL SIGNS: Reviewed. GENERAL: ~Patient is a well-developed and nourished male who is lying comfortable in the stretcher. ~Patient is not in any acute respiratory distress. HEAD AND FACE: No signs of trauma. ~No ecchymosis, hematomas or skull depressions. No sinus tenderness. EYES: Patient is legally blind. EARS: Hearing grossly intact. Ear canals and tympanic membranes are within normal limits. MOUTH: Oropharynx within normal limits. NECK: Supple, trachea is midline, no adenopathy, no JVD, no carotid bruit, no c- spine tenderness, neck with full ROM. CHEST: Symmetric, no tenderness at palpation LUNGS: Clear to auscultation bilaterally. No wheezing or crackles. CVS: Irregularly irregular rate and rhythm, S1 and S2 present, no murmurs or gallops appreciated. ABDOMEN: Soft, non-tender. No signs of distention. No rebound no guarding, and no masses palpated. Bowel sounds are normal. EXTREMITIES: FROM in all major joints, no edema, no cyanosis or clubbing. NEURO: Alert and oriented x 3. No acute neurological deficits. Speech is normal and follows commands. SKIN: Dry and warm Triage Information Reviewed: Yes Vital Signs On Initial Exam: Initial Vitals Temp Pulse Resp BP Pulse Ox 98 F 126 16 125/95 98 03/10/17 14:21 03/10/17 14:21 03/10/17 14:21 03/10/17 14:21 03/10/17 14:21 Vital Signs Reviewed: Yes Diagnostics - Vital Signs Vital Signs Temp Pulse Resp BP Pulse Ox 03/10/17 14:21 98 F 126 16 125/95 98 - Laboratory Lab Results: Lab Results 03/10/17 03/10/17 03/10/17 Range/Units 14:35 14:35 14:35 WBC 6.3 (3.5-10.8) 10^3/ul RBC 4.01 (4.0-5.4) 10^6/ul Hgb 13.6 L (14.0-18.0) g/dl Hct 41 L (42-52) % MCV 102 H (80-94) fL MCH 34 H (27-31) pg MCHC 34 (31-36) g/dl RDW 14 (10.5-15) % Plt Count 199 (150-450) 10^3/ul MPV 10 (7.4-10.4) um3 Neut % (Auto) 42.3 (38-83) % Lymph % (Auto) 43.6 (25-47) % Edmonson % (Auto) 9.6 H (1-9) % Eos % (Auto) 3.8 (0-6) % Baso % (Auto) 0.7 (0-2) % Absolute Neuts (auto) 2.7 (1.5-7.7) 10^3/ul Absolute Lymphs (auto) 2.7 (1.0-4.8) 10^3/ul Absolute Monos (auto) 0.6 (0-0.8) 10^3/ul Absolute Eos (auto) 0.2 (0-0.6) 10^3/ul Absolute Basos (auto) 0 (0-0.2) 10^3/ul Absolute Nucleated RBC 0.01 10^3/ul Nucleated RBC % 0.1 INR (Anticoag Therapy) 0.98 (0.89-1.11) APTT 30.6 (26.0-36.3) seconds Sodium 138 (133-145) mmol/L Potassium 4.4 (3.5-5.0) mmol/L Chloride 104 (101-111) mmol/L Carbon Dioxide 29 (22-32) mmol/L Anion Gap 5 (2-11) mmol/L BUN 19 (6-24) mg/dL Creatinine 1.35 H (0.67-1.17) mg/dL Est GFR ( Amer) 66.8 (>60) Est GFR (Non-Af Amer) 52.0 (>60) BUN/Creatinine Ratio 14.1 (8-20) Glucose 110 H (70-100) mg/dL Lactic Acid (0.5-2.0) mmol/L Calcium 9.1 (8.6-10.3) mg/dL Magnesium 1.7 L (1.9-2.7) mg/dL Total Bilirubin 0.60 (0.2-1.0) mg/dL AST 16 (13-39) U/L ALT 9 (7-52) U/L Alkaline Phosphatase 55 (34-104) U/L Total Creatine Kinase 40 (10-223) U/L CK-MB (CK-2) 1.4 (0.6-6.3) ng/mL Troponin I 0.01 (<0.04) ng/mL B-Natriuretic Peptide ( - 100) pg/mL Total Protein 6.7 (6.4-8.9) g/dL Albumin 3.8 (3.2-5.2) g/dL Globulin 2.9 (2-4) g/dL Albumin/Globulin Ratio 1.3 (1-3) Vitamin B12 (180-914) pg/mL Folate (>3.99) ng/mL TSH 3.53 (0.34-5.60) mcIU/mL 03/10/17 03/10/17 03/10/17 Range/Units 14:35 14:35 18:43 WBC (3.5-10.8) 10^3/ul RBC (4.0-5.4) 10^6/ul Hgb (14.0-18.0) g/dl Hct (42-52) % MCV (80-94) fL MCH (27-31) pg MCHC (31-36) g/dl RDW (10.5-15) % Plt Count (150-450) 10^3/ul MPV (7.4-10.4) um3 Neut % (Auto) (38-83) % Lymph % (Auto) (25-47) % Edmonson % (Auto) (1-9) % Eos % (Auto) (0-6) % Baso % (Auto) (0-2) % Absolute Neuts (auto) (1.5-7.7) 10^3/ul Absolute Lymphs (auto) (1.0-4.8) 10^3/ul Absolute Monos (auto) (0-0.8) 10^3/ul Absolute Eos (auto) (0-0.6) 10^3/ul Absolute Basos (auto) (0-0.2) 10^3/ul Absolute Nucleated RBC 10^3/ul Nucleated RBC % INR (Anticoag Therapy) (0.89-1.11) APTT (26.0-36.3) seconds Sodium (133-145) mmol/L Potassium (3.5-5.0) mmol/L Chloride (101-111) mmol/L Carbon Dioxide (22-32) mmol/L Anion Gap (2-11) mmol/L BUN (6-24) mg/dL Creatinine (0.67-1.17) mg/dL Est GFR ( Amer) (>60) Est GFR (Non-Af Amer) (>60) BUN/Creatinine Ratio (8-20) Glucose (70-100) mg/dL Lactic Acid 1.3 (0.5-2.0) mmol/L Calcium (8.6-10.3) mg/dL Magnesium (1.9-2.7) mg/dL Total Bilirubin (0.2-1.0) mg/dL AST (13-39) U/L ALT (7-52) U/L Alkaline Phosphatase (34-104) U/L Total Creatine Kinase (10-223) U/L CK-MB (CK-2) (0.6-6.3) ng/mL Troponin I 0.01 (<0.04) ng/mL B-Natriuretic Peptide 153 H ( - 100) pg/mL Total Protein (6.4-8.9) g/dL Albumin (3.2-5.2) g/dL Globulin (2-4) g/dL Albumin/Globulin Ratio (1-3) Vitamin B12 (180-914) pg/mL Folate (>3.99) ng/mL TSH (0.34-5.60) mcIU/mL 03/10/17 03/11/17 03/11/17 Range/Units 21:34 06:41 06:41 WBC 5.6 (3.5-10.8) 10^3/ul RBC 3.68 L (4.0-5.4) 10^6/ul Hgb 12.6 L (14.0-18.0) g/dl Hct 38 L (42-52) % MCV 102 H (80-94) fL MCH 34 H (27-31) pg MCHC 33 (31-36) g/dl RDW 14 (10.5-15) % Plt Count 180 (150-450) 10^3/ul MPV 9 (7.4-10.4) um3 Neut % (Auto) 42.7 (38-83) % Lymph % (Auto) 45.5 (25-47) % Edmonson % (Auto) 8.4 (1-9) % Eos % (Auto) 2.7 (0-6) % Baso % (Auto) 0.7 (0-2) % Absolute Neuts (auto) 2.4 (1.5-7.7) 10^3/ul Absolute Lymphs (auto) 2.6 (1.0-4.8) 10^3/ul Absolute Monos (auto) 0.5 (0-0.8) 10^3/ul Absolute Eos (auto) 0.2 (0-0.6) 10^3/ul Absolute Basos (auto) 0 (0-0.2) 10^3/ul Absolute Nucleated RBC 0.01 10^3/ul Nucleated RBC % 0.2 INR (Anticoag Therapy) (0.89-1.11) APTT (26.0-36.3) seconds Sodium 138 (133-145) mmol/L Potassium 4.3 (3.5-5.0) mmol/L Chloride 108 (101-111) mmol/L Carbon Dioxide 25 (22-32) mmol/L Anion Gap 5 (2-11) mmol/L BUN 17 (6-24) mg/dL Creatinine 1.17 (0.67-1.17) mg/dL Est GFR ( Amer) 78.8 (>60) Est GFR (Non-Af Amer) 61.3 (>60) BUN/Creatinine Ratio 14.5 (8-20) Glucose 91 (70-100) mg/dL Lactic Acid (0.5-2.0) mmol/L Calcium 8.4 L (8.6-10.3) mg/dL Magnesium 2.1 (1.9-2.7) mg/dL Total Bilirubin (0.2-1.0) mg/dL AST (13-39) U/L ALT (7-52) U/L Alkaline Phosphatase (34-104) U/L Total Creatine Kinase (10-223) U/L CK-MB (CK-2) (0.6-6.3) ng/mL Troponin I 0.00 (<0.04) ng/mL B-Natriuretic Peptide ( - 100) pg/mL Total Protein (6.4-8.9) g/dL Albumin (3.2-5.2) g/dL Globulin (2-4) g/dL Albumin/Globulin Ratio (1-3) Vitamin B12 534 (180-914) pg/mL Folate > 20.00 (>3.99) ng/mL TSH (0.34-5.60) mcIU/mL Result Diagrams: 03/11/17 06:41 03/13/17 10:50 Lab Statement: Any lab studies that have been ordered have been reviewed, and results considered in the medical decision making process. - Radiology CXR Xray Interpretation: No Acute Changes - NO ACTIVE CARDIOPULMONARY DISEASE IS NOTED. Radiology Interpretation Completed By: Radiologist - EKG 14:30 Cardiac Rate: Tachycardia - 122 bpm EKG Interpretation: Afib. No ST elevations Course/Dx - Course Assessment/Plan: Pt is a 71 y/o male presenting to the ED for further evaluation of abnormalities found on routine physical by PCP. The pt denies CP and SOB. The pt is legally blind. PMHx: throat, tongue, and skin cancer but no history of A-FIB, or COPD. SHx: former tobacco use. Test results show slight anemia, creatinine 1.35, glucose 110, BNP 153, magnesium 1.7, for which the patient was given PO magnesium. The CXR had no acute findings. The EKG shows A- Fib with RVR. In the ED course IV fluids and Cardiozen. Because the patients A- Fib was new in onset, the case was discussed with Dr. Eason, who accepts the patient for admission. The patient was hemodynamically stable and A&Ox3. - Diagnoses Differential Diagnosis/HQI/PQRI: Positive: Paroxymal SVT, V-Tach, Other - Atrial Fib Provider Diagnoses: Atrial fibrillation with RVR - Physician Notifications Discussed Care Of Patient With: Eleuterio Eason Time Discussed With Above Provider: 15:55 - agrees to admit patient Instructed by Provider To: Other - Will admit the patient Discharge - Discharge Plan Condition: Improved Disposition: ADMITTED TO [facility] documentation as recorded by the Tegan espinoza Thomas accurately reflects the service I personally performed and the decisions made by , Allen Robert MD.
--- NOTE | 2017-03-15 15:15 | DS ---
CC: Ana Luisa Berg MD * DISCHARGE SUMMARY: DATE OF ADMISSION: 03/10/17 DATE OF DISCHARGE: 03/13/17 PROVIDER: Kaylyn Mills NP ATTENDING PHYSICIAN: Han Neff MD * (as dictated by Kaylyn Mills NP). CONSULTING PHYSICIAN: Markos Kruse MD PRIMARY CARE PHYSICIAN: Ana Luisa Berg MD PRIMARY DISCHARGE DIAGNOSES: 1. Atrial fibrillation with rapid ventricular response. 2. Low magnesium. 3. Elevated serum creatinine. SECONDARY DISCHARGE DIAGNOSES: 1. History of laryngeal cancer, head and neck cancer. 2. 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 3. Major depressive disorder. 4. Alcohol abuse with alcohol-induced mood disorder. 5. History of rib fractures. 6. Legally blind. 7. Insomnia. 8. Benign hypertrophic hyperplasia. 9. Seborrheic dermatitis. 10. Pityriasis versicolor. 11. Tinea cruris. 12. 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 13. History of partial glossectomy related to squamous cell cancer. MEDICATIONS AT DISCHARGE: 1. Calcium and vitamin D supplement 1 tab daily. 2. Ibuprofen 200 mg q.6 hours p.r.n. 3. Melatonin 10 mg at bedtime p.r.n. 4. Triamcinolone cream 1 application topical daily p.r.n. 5. Ketoconazole cream 1 application topical twice a week. 6. Cholecalciferol 50,000 units monthly. 7. [place] 5/325 one tab b.i.d. p.r.n. 8. Trazodone 75 mg at bedtime. 9. Omeprazole 20 mg daily. 10. Neurontin 300 mg q.a.m. and 200 mg q.p.m. 11. Fluoxetine 20 mg daily. 12. Tamsulosin 0.4 mg daily. NEW MEDICATIONS AT DISCHARGE: 1. Metoprolol tartrate 50 mg q.12 hours. 2. Apixaban 5 mg b.i.d. IMAGING: Transthoracic echocardiogram, conclusion: The study is technically limited due to the patient's body habitus. Mild concentric left ventricular hypertrophy is observed. Mild global hypokinesis of the left ventricle is observed. There is mildly decreased left ventricular systolic function. The estimated ejection fraction is 45% to 50%. The left atrium is moderately dilated. There is mild to moderate mitral regurgitation. There is mild to moderate tricuspid regurgitation. There is evidence of mild pulmonary hypertension. There is a trace pulmonic regurgitation. The patient is noted to be in atrial fibrillation with a moderate ventricular response which may lead to underestimating LV systolic function. No reports of prior studies are offered for comparison. HOSPITAL COURSE OF STAY: For full details, please refer to the H and P provided on 03/10/17. In summary, Mr. Martinez is a 71-year-old male originally from [place] who moved here approximately 2 years ago to be closer to his son. He was following up with his PCP on 03/10/17 for a routine physical. At that time, Dr. Berg noted that he had an irregular rate and rhythm, and EKG revealed that the patient was in AFib with RVR. Patient was transferred to the ER with noted rates up to 160 beats per minute. He remained asymptomatic and continued to deny chest pain, dizziness, shortness of breath or any other _ at the time of admission and throughout his stay here. He was initially treated with diltiazem but was noted to be hypotensive on this medication and he was switched to metoprolol. Cardiology was consulted for the possibility of a cardioversion. However, the patient's history of head and neck cancer with partial glossectomy, we opted for rate control and anticoagulation. At 25 mg b.i.d., the patient still was having sustained heart rates in the 130s and 140s, this was increased to 50 mg b.i.d. and his pressures were able to tolerate this. On 50 mg b.i.d., the patient's mean heart rate was 99 beats per minute. He was able to be maintained in the 80s to 100s. I did discuss this with Dr. Ortiz of cardiology group who felt that this is appropriate and states that he will be titrated up to 75 mg b.i.d. as an outpatient. In regards to the patient's anticoagulation, I did have a long discussion with him and his clinic director Yaneth and his son regarding the importance of anticoagulation and asymptomatic atrial fibrillation. Patient was advised to stop drinking as he does report that he has rum daily in a 2 gallon jug. I did also explain that he is at increased risk for bleeding and does need to monitor for signs and symptoms of bleeding. His clinic director and son are aware of this. Additionally, they feel that he is generally pretty steady, does not fall often , so at this time it appears appropriate to maintain him on Eliquis. This should of course be reviewed with his PCP on a continual basis. The patient was also noted to have a mild microcytosis, which is suspected secondary to his alcohol use. The patient's folate and B12 levels were greater than 20 and 534 respectively which is within normal range per the laboratory spectrum. Patient also showed some mild renal insufficiency and his creatinine has stayed between 1.17 and 1.32 during his time here. The patient did have magnesium and potassium replacement prior to discharge. Again, the patient remained asymptomatic throughout his stay and often stated that he had felt fine and wondered why he had to be here in the hospital. I did review with him multiple times the risk of atrial fibrillation and why it is important to have good rate control. The patient has very poor short-term memory. Therefore, this information was also shared with his clinic director as well as his son. CONCERNS AT DISCHARGE: Mr. Martinez was discharged to home on 03/13/17. He is to follow up with Dr. Berg within 1 week. He has a followup appointment scheduled with Dr. Kruse within the next 3 to 4 weeks. The office will call him to schedule his appointment. DIET: Heart healthy diet. Patient advised not to drink alcohol. ACTIVITY: As tolerated. CONDITION: Improved, stable. DISPOSITION: Home. TIME SPENT: Time spent on this discharge was approximately 45 minutes. Again, this is only a brief summary of the patient's hospital course of stay. For full details, please refer to the full medical record. If you have any further questions or need further assistance, please feel free to contact me at [phone]. KAYLYN MILLS, SEKOU [id number]/[facility] #: [id number] ABRAN
== END 2017-03-13 17:02 | disposition home or self-care (01) | DRG 309 ==
LOC: ED 14:14 → MEDTELE 16:00 → OBSVTOIN 03-11 13:35
PROVIDERS: ADMIT Internal Medicine; ATTEND Hospitalist
DX: I48.91 Unspecified atrial fibrillation (principal); F10.14 Alcohol abuse with alcohol-induced mood disorder; I27.2 Other secondary pulmonary hypertension; E83.42 Hypomagnesemia; D53.9 Nutritional anemia, unspecified; I08.1 Rheumatic disorders of both mitral and tricuspid valves; B35.6 Tinea cruris; Z85.828 Personal history of other malignant neoplasm of skin; Z85.810 Personal history of malignant neoplasm of tongue; Z88.0 Allergy status to penicillin; Z87.891 Personal history of nicotine dependence; Z96.642 Presence of left artificial hip joint; Z82.49 Family history of ischemic heart disease and other diseases of the circulatory system; H54.8 Legal blindness, as defined in USA; F32.9 Major depressive disorder, single episode, unspecified; N40.0 Benign prostatic hyperplasia without lower urinary tract symptoms; G47.00 Insomnia, unspecified; K14.6 Glossodynia; R94.4 Abnormal results of kidney function studies; Y90.9 Presence of alcohol in blood, level not specified; L21.9 Seborrheic dermatitis, unspecified; B36.0 Pityriasis versicolor; Z79.01 Long term (current) use of anticoagulants
CPT/HCPCS: 36415; 71010; 80048; 80053; 82550; 82553; 82607; 82746; 83605; 83735; 83880; 84443; 84484; 85025; 85610; 85730; 93005; 93306; A9270-GY; J1160; J3475

== ENCOUNTER 2017-03-20 16:26 | Emergency (ER) | payer MEDICARE, OTHER ==
[2017-03-20] MEDS ORDERED: NS 0.9% 1000 ML* 1,000 ML IV ONE (17:18)
[2017-03-20 17:37] LABS: Hematocrit 35 % (42-52); Hemoglobin 11.8 g/dl (14.0-18.0); Mean Corpuscular HGB Conc 34 g/dl (31-36); Mean Corpuscular Hemoglobin 35 pg (27-31); Mean Corpuscular Volume 105 fL (80-94); Mean Platelet Volume 10 um3 (7.4-10.4); Red Blood Count 3.37 10^6/ul (4.0-5.4); Red Cell Distribution Width 13 % (10.5-15); White Blood Count 5.7 10^3/ul (3.5-10.8)
[2017-03-20 17:49] LABS: Albumin 3.3 g/dL (3.2-5.2); BUN/Creatinine Ratio 14.8 (8-20); Calcium 8.7 mg/dL (8.6-10.3); EGFR African American 75.1 (>60); EGFR Non-African American 58.4 (>60); Globulin 2.9 g/dL (2-4); Magnesium 1.4 mg/dL (1.9-2.7); Potassium 4.2 mmol/L (3.5-5.0); Total Bilirubin 0.7 mg/dL (0.2-1.0); Total Protein 6.2 g/dL (6.4-8.9)
[2017-03-20] MEDS ORDERED: Iodixanol* (CONTRAST) 320 MG/ML 100 ML SDV IV ONE (17:55)
--- NOTE | 2017-03-20 18:49 | RAD ---
INDICATION: Hypotensive with new onset lower back pain. New onset atrial fibrillation on anticoagulants. Alcohol abuse. COMPARISON: No relevant prior exams available on the [facility] PACS for comparison. TECHNIQUE: Multidetector CT images were obtained from the lung bases to the ischial tuberosities with 114 mL Visipaque 320 IV and oral contrast. Multiplanar reformation. Bone algorithm reformatted images of the lumbar sacral spine with multiplanar reformation. REPORT: Limited visualized inferior thorax is remarkable for LEFT atrial enlargement and minimal bibasilar atelectasis. 13 cm cephalocaudal liver is remarkable for heterogeneous enhancement. No gross abnormality of the liver surface contour. No compelling focal hepatic lesions or biliary dilatation. Negative for CT abnormality of the gallbladder, pancreas, spleen. Negative for CT abnormality of the upper GI, small bowel, or infra medially extending appendix. Severe colonic diverticulosis without findings of diverticulitis. Negative for ascites or free air. Negative for significant hernias. Normal adrenal glands. Moderately atrophic bilateral kidneys with symmetric nephrograms and pyelograms. No suspicious focal renal lesions or hydronephrosis. Unremarkable ureters and urinary bladder. No suspicious finding at the prostate or seminal vesicles. Erectile dysfunction device reservoir at the LEFT inguinal region. Negative for lymphadenopathy. Normal diameter abdominal aorta and iliac arteries atherosclerotic plaque with suggestion of approximate 70% stenosis at the proximal segment of the superior mesenteric artery. LEFT total hip prosthesis. Avascular necrosis at the RIGHT femoral head without gross subchondral collapse. Multiple healed and chronic appearing bilateral inferior rib fractures. Osteoporotic appearing compression fractures involving the superior endplates of the T11, T12, L1, and L2 vertebral bodies without gross cortical disruption or trabecular impaction to favor acute or subacute fracture. Multilevel lumbar sacral spine degenerative spondylosis and facet joint osteoarthritis. Disc space narrowing is moderate at L2-L3, moderate at L3-L4, severe at L4-L5, and mild at L5-S1. At L1-L2 annular disc bulge and facet ligamentous hypertrophy results in mild acquired central canal stenosis and moderate bilateral foraminal stenosis. At L2-L3 annular disc bulge and facet joint osteoarthritis results in moderate acquired central canal stenosis and mild bilateral foraminal stenosis. At L3-L4 annular disc bulge and posterior element osteoarthritis results in moderate acquired central canal stenosis and mild RIGHT and moderately severe LEFT foraminal stenosis. At L4-L5 dorsal spondylitic ridging and posterior element osteoarthritis results in severe acquired central canal stenosis and moderately severe bilateral foraminal stenosis. At L5-S1 degenerative spondylosis and posterior element osteoarthritis results in moderate RIGHT and mild LEFT foraminal stenosis. IMPRESSION: 1. Heterogeneous enhancement of the liver may reflect early cirrhosis given the clinical context. No focal hepatic lesions or biliary dilatation. 2. Negative for stigmata of portal hypertension. 3. Severe colonic diverticulosis without findings of diverticulitis. Normal appendix documented. 4. Normal diameter abdominal aorta and iliac arteries atherosclerotic plaque with suggestion of approximate 70% stenosis at the proximal segment of the superior mesenteric artery. 5. Osteoporotic appearing compression fractures involving the superior endplates of the T11, T12, L1, and L2 vertebral bodies without gross cortical disruption or trabecular impaction to favor acute or subacute fracture. 6. Multilevel advanced degenerative spondylosis and facet joint osteoarthritis with acquired central canal and foraminal stenosis as described level by level. MRI would allow for the most accurate assessment of degree of spinal stenosis.
[2017-03-20 19:06] LABS: Urine Bilirubin Negative (Negative); Urine Glucose Negative (Negative); Urine Nitrite Negative (Negative)
[2017-03-20 19:15] LABS: TSH (Thyroid Stimulating Horm) 2.15 mcIU/mL (0.34-5.60)
[2017-03-20] MEDS ORDERED: LORazepam TAB(*) 1 MG PO ONE (20:43)
[2017-03-20 21:17] VITALS: BP 102/81
--- NOTE | 2017-03-20 21:55 | ED ---
Florencia Smith Edward, scribed for Hugh Dalton MD on 03/20/17 at 1709 . Back Pain - HPI Summary HPI Summary: 71 male BIBA for lower back spasms and hypotension. Per patient's son, the patient's back spasms started Friday and occurs intermittently. The spasms are aggravated by movement. Patient states the pain has gotten progressively worse since Friday. Patient was also found to be hypotensive at a check-up today with his PCP (BP currently 92/65). Associated sx: chronic tongue pain (tongue CA). Denies ABD pain. PMHx AFIB, tongue CA, legally blind. SHx part of tongue removed. Patient is on blood thinners. Patient was recently admitted for new onset AFIB. - History of Current Complaint Chief Complaint: EDDysrhythmPalp Stated Complaint: LOW BLOOD PRESSURE Time Seen by Provider: 03/20/17 16:34 Hx Obtained From: Patient, Family/Manager Paid - Son Onset/Duration: Lasting Days - Started Friday Onset/Duration: Still Present Timing: Intermittent Severity Initially: Moderate Severity Currently: Moderate Pain Intensity: 5 Pain Scale Used: 0-10 Numeric Character: Spasmodic Aggravating Symptom(s): Movement Associated Signs And Symptoms: Positive: Other - Hypotension. Negative: Abdominal Pain - Allergies/Home Medications Allergies/Adverse Reactions: Allergies Allergy/AdvReac Type Severity Reaction Status Date / Time Amoxicillin Allergy Rash Verified 06/06/15 15:48 Penicillins Allergy Altered Verified 10/10/16 17:59 Mental Status PMH/Surg Hx/FS Hx/Imm Hx Previously Healthy: No Endocrine/Hematology History: Denies: Hx Diabetes, Hx Thyroid Disease Cardiovascular History: Denies: Hx Hypertension Comment Only: Other Cardiovascular Problems/Disorders - hypotension. Respiratory History: Denies: Hx Asthma, Hx Chronic Obstructive Pulmonary Disease (COPD) GI History: Denies: Hx Ulcer History: Reports: Hx Benign Prostatic Hyperplasia Sensory History: Reports: Hx Legally Blind Denies: Hx Contacts or Glasses, Hx Hearing Aid Opthamlomology History: Reports: Hx Legally Blind Denies: Hx Contacts or Glasses Psychiatric History: Reports: Hx Depression - Cancer History Cancer Type, Location and Year: Throat. Tongue - Surgical History Surgery Procedure, Year, and Place: 4 surgeries on RIGHT foot. Hip Replacement LEFT Infectious Disease History: No Infectious Disease History: Denies: Hx Hepatitis, Hx Human Immunodeficiency Virus (HIV), History Other Infectious Disease, Traveled Outside the [place] in Last 30 Days - Family History Known Family History: Positive: Hypertension - Social History Alcohol Use: Daily Alcohol Amount: "every Night" rum Substance Use Type: Reports: None, Marijuana Substance Use Comment - Amount & Last Used: "Pot when I can get it" Smoking Status (MU): Never Smoked Tobacco Type: Cigarettes Amount Used/How Often: 1 ppd Length of Time of Smoking/Using Tobacco: 7 years Review of Systems Constitutional: Negative Eyes: Other - Legally blind ENT: Other - Tongue pain (chronic) Cardiovascular: Other - Hypotensive Respiratory: Negative Gastrointestinal: Negative Negative: Abdominal Pain Genitourinary: Negative Positive: Myalgia - Low back spasms Skin: Negative Neurological: Negative Psychological: Normal All Other Systems Reviewed And Are Negative: Yes Physical Exam Triage Information Reviewed: Yes Vital Signs On Initial Exam: Initial Vitals BP 92/65 03/20/17 16:34 Vital Signs Reviewed: Yes Appearance: Positive: Well-Appearing, No Pain Distress Skin: Positive: Warm, Skin Color Reflects Adequate Perfusion, Dry Head/Face: Positive: Normal Head/Face Inspection Eyes: Positive: Normal ENT: Positive: Normal ENT inspection Neck: Positive: Supple, Nontender Respiratory/Lung Sounds: Positive: Clear to Auscultation, Breath Sounds Present Cardiovascular: Positive: Tachycardia - Borderline, Other - Irregular rhythm Abdomen Description: Positive: Nontender, Soft Bowel Sounds: Positive: Present Musculoskeletal: Positive: Other - Negative straight legraise Neurological: Positive: Normal Psychiatric: Positive: Normal, Affect/Mood Appropriate Diagnostics - Vital Signs Vital Signs Temp Pulse Resp BP Pulse Ox 03/20/17 16:45 82/46 03/20/17 16:44 98.1 F 104 20 77/47 94 03/20/17 16:36 105 14 96 03/20/17 16:34 92/65 - Laboratory Lab Results: Lab Results 03/20/17 03/20/17 03/20/17 Range/Units 16:40 16:40 16:40 WBC 5.7 (3.5-10.8) 10^3/ul RBC 3.37 L (4.0-5.4) 10^6/ul Hgb 11.8 L (14.0-18.0) g/dl Hct 35 L (42-52) % MCV 105 H (80-94) fL MCH 35 H (27-31) pg MCHC 34 (31-36) g/dl RDW 13 (10.5-15) % Plt Count 242 (150-450) 10^3/ul MPV 10 (7.4-10.4) um3 Neut % (Auto) 45.7 (38-83) % Lymph % (Auto) 38.6 (25-47) % Leslie % (Auto) 12.7 H (1-9) % Eos % (Auto) 2.3 (0-6) % Baso % (Auto) 0.7 (0-2) % Absolute Neuts (auto) 2.6 (1.5-7.7) 10^3/ul Absolute Lymphs (auto) 2.2 (1.0-4.8) 10^3/ul Absolute Monos (auto) 0.7 (0-0.8) 10^3/ul Absolute Eos (auto) 0.1 (0-0.6) 10^3/ul Absolute Basos (auto) 0 (0-0.2) 10^3/ul Absolute Nucleated RBC 0.01 10^3/ul Nucleated RBC % 0.1 INR (Anticoag Therapy) 1.45 H (0.89-1.11) Sodium 134 (133-145) mmol/L Potassium 4.2 (3.5-5.0) mmol/L Chloride 103 (101-111) mmol/L Carbon Dioxide 26 (22-32) mmol/L Anion Gap 5 (2-11) mmol/L BUN 18 (6-24) mg/dL Creatinine 1.22 H (0.67-1.17) mg/dL Est GFR ( Amer) 75.1 (>60) Est GFR (Non-Af Amer) 58.4 (>60) BUN/Creatinine Ratio 14.8 (8-20) Glucose 89 (70-100) mg/dL Lactic Acid (0.5-2.0) mmol/L Calcium 8.7 (8.6-10.3) mg/dL Magnesium 1.4 L (1.9-2.7) mg/dL Total Bilirubin 0.70 (0.2-1.0) mg/dL AST 11 L (13-39) U/L ALT 7 (7-52) U/L Alkaline Phosphatase 47 (34-104) U/L Troponin I 0.00 (<0.04) ng/mL Total Protein 6.2 L (6.4-8.9) g/dL Albumin 3.3 (3.2-5.2) g/dL Globulin 2.9 (2-4) g/dL Albumin/Globulin Ratio 1.1 (1-3) TSH 2.15 (0.34-5.60) mcIU/mL Urine Color Urine Appearance Urine pH (5-9) Ur Specific [place] (1.010-1.030) Urine Protein (Negative) Urine Ketones (Negative) Urine Blood (Negative) Urine Nitrate (Negative) Urine Bilirubin (Negative) Urine Urobilinogen (Negative) Ur Leukocyte Esterase (Negative) Urine Glucose (Negative) 03/20/17 03/20/17 Range/Units 16:40 18:54 WBC (3.5-10.8) 10^3/ul RBC (4.0-5.4) 10^6/ul Hgb (14.0-18.0) g/dl Hct (42-52) % MCV (80-94) fL MCH (27-31) pg MCHC (31-36) g/dl RDW (10.5-15) % Plt Count (150-450) 10^3/ul MPV (7.4-10.4) um3 Neut % (Auto) (38-83) % Lymph % (Auto) (25-47) % Leslie % (Auto) (1-9) % Eos % (Auto) (0-6) % Baso % (Auto) (0-2) % Absolute Neuts (auto) (1.5-7.7) 10^3/ul Absolute Lymphs (auto) (1.0-4.8) 10^3/ul Absolute Monos (auto) (0-0.8) 10^3/ul Absolute Eos (auto) (0-0.6) 10^3/ul Absolute Basos (auto) (0-0.2) 10^3/ul Absolute Nucleated RBC 10^3/ul Nucleated RBC % INR (Anticoag Therapy) (0.89-1.11) Sodium (133-145) mmol/L Potassium (3.5-5.0) mmol/L Chloride (101-111) mmol/L Carbon Dioxide (22-32) mmol/L Anion Gap (2-11) mmol/L BUN (6-24) mg/dL Creatinine (0.67-1.17) mg/dL Est GFR ( Amer) (>60) Est GFR (Non-Af Amer) (>60) BUN/Creatinine Ratio (8-20) Glucose (70-100) mg/dL Lactic Acid 1.0 (0.5-2.0) mmol/L Calcium (8.6-10.3) mg/dL Magnesium (1.9-2.7) mg/dL Total Bilirubin (0.2-1.0) mg/dL AST (13-39) U/L ALT (7-52) U/L Alkaline Phosphatase (34-104) U/L Troponin I (<0.04) ng/mL Total Protein (6.4-8.9) g/dL Albumin (3.2-5.2) g/dL Globulin (2-4) g/dL Albumin/Globulin Ratio (1-3) TSH (0.34-5.60) mcIU/mL Urine Color Yellow Urine Appearance Clear Urine pH 6.0 (5-9) Ur Specific [place] 1.026 (1.010-1.030) Urine Protein Negative (Negative) Urine Ketones Negative (Negative) Urine Blood Negative (Negative) Urine Nitrate Negative (Negative) Urine Bilirubin Negative (Negative) Urine Urobilinogen Negative (Negative) Ur Leukocyte Esterase Negative (Negative) Urine Glucose Negative (Negative) Result Diagrams: 03/20/17 16:40 03/20/17 16:40 Lab Statement: Any lab studies that have been ordered have been reviewed, and results considered in the medical decision making process. - CT CT LUMBAR SPINE CT Interpretation: Positive (See Comments) - 1. Heterogeneous enhancement of the liver may reflect early cirrhosis given the clinical context. No focal hepatic lesions or biliary dilatation. 2. Negative for stigmata of portal hypertension. 3. Severe colonic diverticulosis without findings of diverticulitis. Normal appendix documented. 4. Normal diameter abdominal aorta and iliac arteries atherosclerotic plaque with suggestion of approximate 70% stenosis at the proximal segment of the superior mesenteric artery. 5. Osteoporotic appearing compression fractures involving the superior endplates of the T11, T12, L1, and L2 vertebral bodies without gross cortical disruption or trabecular impaction to favor acute or subacute fracture. 6. Multilevel advanced degenerative spondylosis and facet joint osteoarthritis with acquired central canal and foraminal stenosis as described level by level. MRI would allow for the most accurate assessment of degree of spinal stenosis. CT Interpretation Completed By: Radiologist ABD/PELVIS CT CT Interpretation: Positive (See Comments) - 1. Heterogeneous enhancement of the liver may reflect early cirrhosis given the clinical context. No focal hepatic lesions or biliary dilatation. 2. Negative for stigmata of portal hypertension. 3. Severe colonic diverticulosis without findings of diverticulitis. Normal appendix documented. 4. Normal diameter abdominal aorta and iliac arteries atherosclerotic plaque with suggestion of approximate 70% stenosis at the proximal segment of the superior mesenteric artery. 5. Osteoporotic appearing compression fractures involving the superior endplates of the T11, T12, L1, and L2 vertebral bodies without gross cortical disruption or trabecular impaction to favor acute or subacute fracture. 6. Multilevel advanced degenerative spondylosis and facet joint osteoarthritis with acquired central canal and foraminal stenosis as described level by level. MRI would allow for the most accurate assessment of degree of spinal stenosis. CT Interpretation Completed By: Radiologist - EKG 1 EKG Interpretation: 16:36 - A-fib with borderline tachycardia Back Pain Course/Dx - Course Course Of Treatment: Mr. Martinez relates to me that he was sent over because he is having severe back pain and has recently been started on a blood thinner. He went to his MD today for routine F/U and his BP was low and he was sent over here. He says his normal BP is 80 - 90. HE was observed here on the monitor and remained in A-Fib with a controlled rate and a BP in the 80's. CT of his back and abdomen were negative for any bleeding. - Diagnoses Provider Diagnoses: Back pain Discharge - Discharge Plan Condition: Stable Disposition: HOME Prescriptions: LORazepam TAB(*) [Ativan TAB(*)] 1 mg PO Q6H PRN #20 tab MDD 4 PRN Reason: Pain Patient Education Materials: Back Pain (ED) Referrals: Ana Luisa Berg MD [Primary Care Provider] - 3 Days (Please follow up in 2-3 days. ) The documentation as recorded by the Florencia espinoza Edward accurately reflects the service I personally performed and the decisions made by me, Hugh Dalton MD.
== END 2017-03-20 21:07 | disposition home or self-care (01) ==
LOC: ED 16:26
DX: I95.9 Hypotension, unspecified (principal); M54.9 Dorsalgia, unspecified; Z79.01 Long term (current) use of anticoagulants; I48.91 Unspecified atrial fibrillation; H54.8 Legal blindness, as defined in USA
CPT/HCPCS: 36415; 72132; 74177; 80053; 81003; 83605; 83735; 84443; 84484; 85025; 85610; 93005; 99283; A9270-GY; Q9967

== ENCOUNTER 2017-03-21 22:45 | Emergency (ER) | payer MEDICARE, OTHER ==
[2017-03-21] MEDS ORDERED: HYDROmorphone* 1 MG/ML 1 ML SYR IM ONE (23:49)
[2017-03-21] MEDS ORDERED: LORazepam INJ* 2 MG/ML 1 ML VIAL IM ONE (23:49)
--- NOTE | 2017-03-22 00:03 | ED ---
Tegan Smith Thomas, scribed for Corky Shook MD on 03/21/17 at 2349 . Back Pain - HPI Summary HPI Summary: The pt is a 71 y/o M presenting to the ED c/o back pain that began 5 days ago. His back pain is aggravated by movement and he rates his pain 9/10. He was a patient at [facility] ED yesterday for the same complaint, where he was diagnosed with back spasms. He came to the ED again because they were not resolved. He has caregivers at home. - History of Current Complaint Chief Complaint: EDBackInjuryPain Stated Complaint: BACK PAIN Time Seen by Provider: 03/21/17 23:45 Hx Obtained From: Patient Onset/Duration: Lasting Days - 5 days ago, Still Present Pain Intensity: 9 Pain Scale Used: 0-10 Numeric Aggravating Symptom(s): Movement Alleviating Symptom(s): Nothing - Allergies/Home Medications Allergies/Adverse Reactions: Allergies Allergy/AdvReac Type Severity Reaction Status Date / Time Amoxicillin Allergy Rash Verified 06/06/15 15:48 Penicillins Allergy Altered Verified 10/10/16 17:59 Mental Status PMH/Surg Hx/FS Hx/Imm Hx Previously Healthy: No Endocrine/Hematology History: Denies: Hx Diabetes, Hx Thyroid Disease Cardiovascular History: Denies: Hx Hypertension Comment Only: Other Cardiovascular Problems/Disorders - hypotension. Respiratory History: Denies: Hx Asthma, Hx Chronic Obstructive Pulmonary Disease (COPD) GI History: Denies: Hx Ulcer History: Reports: Hx Benign Prostatic Hyperplasia Sensory History: Reports: Hx Legally Blind Denies: Hx Contacts or Glasses, Hx Hearing Aid Opthamlomology History: Reports: Hx Legally Blind Denies: Hx Contacts or Glasses Psychiatric History: Reports: Hx Depression - Cancer History Cancer Type, Location and Year: Throat. Tongue - Surgical History Surgery Procedure, Year, and Place: 4 surgeries on RIGHT foot. Hip Replacement LEFT Infectious Disease History: No Infectious Disease History: Denies: Hx Hepatitis, Hx Human Immunodeficiency Virus (HIV), History Other Infectious Disease, Traveled Outside the [place] in Last 30 Days - Family History Known Family History: Positive: Hypertension - Social History Alcohol Use: Daily Alcohol Amount: "every Night" rum Substance Use Type: Reports: Marijuana Substance Use Comment - Amount & Last Used: "Pot when I can get it" Smoking Status (MU): Never Smoked Tobacco Type: Cigarettes Amount Used/How Often: 1 ppd Length of Time of Smoking/Using Tobacco: 7 years Review of Systems Constitutional: Negative Negative: Fever Eyes: Negative ENT: Negative Cardiovascular: Negative Respiratory: Negative Gastrointestinal: Negative Genitourinary: Negative Musculoskeletal: Other - POS: back pain, aggravated by movement. Skin: Negative Neurological: Negative Psychological: Normal All Other Systems Reviewed And Are Negative: Yes Physical Exam Triage Information Reviewed: Yes Vital Signs On Initial Exam: Initial Vitals Temp Pulse Resp BP Pulse Ox 98.2 F 118 20 108/72 96 03/21/17 23:01 03/21/17 23:01 03/21/17 23:01 03/21/17 23:01 03/21/17 23:01 Vital Signs Reviewed: Yes Appearance: Positive: Well-Appearing, Pain Distress - mild discomfort Skin: Positive: Warm Head/Face: Positive: Normal Head/Face Inspection Eyes: Positive: DARIN ENT: Positive: Hearing grossly normal Neck: Positive: Supple, Other: - mild paracervical spasm Respiratory/Lung Sounds: Positive: Clear to Auscultation, Breath Sounds Present Cardiovascular: Positive: IRR, Tachycardia Abdomen Description: Positive: Nontender, Soft Bowel Sounds: Positive: Present Musculoskeletal: Positive: Strength/ROM Intact Neurological: Positive: Alert, Oriented to Person Place, Time Psychiatric: Positive: Affect/Mood Appropriate - Siri Coma Scale Coma Scale Total: 15 Diagnostics - Vital Signs Vital Signs Temp Pulse Resp BP Pulse Ox 03/21/17 23:02 132 19 94 03/21/17 23:01 98.2 F 118 20 108/72 96 - Laboratory Result Diagrams: 03/22/17 01:45 03/22/17 01:45 Lab Statement: Any lab studies that have been ordered have been reviewed, and results considered in the medical decision making process. - EKG 01:10 Cardiac Rate: Tachycardia - 137 bpm EKG Interpretation: A-Fib. RVR. Re-Evaluation - Re-Evaluation First Eval Re-Evaluation Time: 04:33 Change: Improved - pain relieved with medication, pt noew rapid afib given cardizem with slowing of same, pt with hx afib Back Pain Course/Dx - Diagnoses Provider Diagnoses: Back pain, Atrial fibrillation - Critical Care Time Critical Care Time: 30-74 min Discharge - Discharge Plan Condition: Stable Disposition: HOME Patient Education Materials: Back Pain (ED) Referrals: An aLuisa Berg MD [Primary Care Provider] - 3 Days The documentation as recorded by the Tegan espinoza Thomas accurately reflects the service I personally performed and the decisions made by me, Corky Shook MD.
[2017-03-22] MEDS ORDERED: Diltiazem IV* 5 MG/ML 5 ML VIAL (for loading dose/IV Push) (25 MG) IV SLOW PU ONE (01:21)
[2017-03-22 01:58] LABS: Hematocrit 36 % (42-52); Hemoglobin 12.3 g/dl (14.0-18.0); Mean Corpuscular HGB Conc 34 g/dl (31-36); Mean Corpuscular Hemoglobin 35 pg (27-31); Mean Corpuscular Volume 104 fL (80-94); Mean Platelet Volume 10 um3 (7.4-10.4); Red Blood Count 3.51 10^6/ul (4.0-5.4); Red Cell Distribution Width 13 % (10.5-15); White Blood Count 6.8 10^3/ul (3.5-10.8)
[2017-03-22 02:13] LABS: BUN/Creatinine Ratio 16.8 (8-20); Calcium 9.1 mg/dL (8.6-10.3); EGFR African American 77.3 (>60); EGFR Non-African American 60.1 (>60); Potassium 4.2 mmol/L (3.5-5.0)
[2017-03-22 02:16] LABS: Troponin I 0.01 ng/mL (<0.04)
[2017-03-22] MEDS ORDERED: NS 0.9% 500 ML BAG* 500 ML IV ONE (04:08)
[2017-03-22 05:58] VITALS: BP 94/60
== END 2017-03-22 05:40 | disposition home or self-care (01) ==
LOC: ED 22:45
DX: I48.91 Unspecified atrial fibrillation (principal); M54.9 Dorsalgia, unspecified
CPT/HCPCS: 36415; 80048; 84484; 85025; 93005; 96372; 99284; J1170; J2060

== ENCOUNTER 2017-03-28 11:09 | Inpatient (IN) | payer MEDICARE, OTHER ==
[2017-03-28] MEDS ORDERED: NS 0.9% 1000 ML* 1,000 ML IV ONE (11:46)
[2017-03-28] MEDS ORDERED: Diltiazem IV* 5 MG/ML 5 ML VIAL (for loading dose/IV Push) (25 MG) IV PUSH ONE (11:46)
[2017-03-28] MEDS ORDERED: Diltiazem IV VIAL* 125 MG in D5W 100 ML BAG* 100 ML IV ONE (11:47)
[2017-03-28 11:58] LABS: Hematocrit 36 % (42-52); Hemoglobin 12.3 g/dl (14.0-18.0); Mean Corpuscular HGB Conc 34 g/dl (31-36); Mean Corpuscular Hemoglobin 36 pg (27-31); Mean Corpuscular Volume 103 fL (80-94); Mean Platelet Volume 9 um3 (7.4-10.4); Red Blood Count 3.47 10^6/ul (4.0-5.4); Red Cell Distribution Width 13 % (10.5-15); White Blood Count 7.8 10^3/ul (3.5-10.8)
[2017-03-28 12:17] LABS: ALT 8 U/L (7-52); AST 11 U/L (13-39); Albumin 3.8 g/dL (3.2-5.2); Alkaline Phosphatase 63 U/L (34-104); Anion Gap 7 mmol/L (2-11); BUN/Creatinine Ratio 23.3 (8-20); Blood Urea Nitrogen 31 mg/dL (6-24); CO2 Carbon Dioxide 25 mmol/L (22-32); Calcium 9.4 mg/dL (8.6-10.3); Chloride 100 mmol/L (101-111); EGFR Non-African American 52.9 (>60); Globulin 3.5 g/dL (2-4); Glucose 97 mg/dL (70-100); Magnesium 1.6 mg/dL (1.9-2.7); Potassium 4.2 mmol/L (3.5-5.0); Sodium 132 mmol/L (133-145); Total Protein 7.3 g/dL (6.4-8.9)
[2017-03-28 12:18] LABS: Troponin I 0.01 ng/mL (<0.04)
--- NOTE | 2017-03-28 12:28 | RAD ---
HISTORY: Shortness of breath, CHF, pneumonia COMPARISONS: March 10, 2017 VIEWS:1: Single frontal portable view of the chest at 11:58 AM FINDINGS: LINES AND TUBES: None. CARDIOMEDIASTINAL SILHOUETTE: The cardiomediastinal silhouette is normal for portable technique. PLEURA: The costophrenic angles are sharp. No pleural abnormalities are noted. LUNG PARENCHYMA: The lungs are clear. ABDOMEN: The upper abdomen is clear. There is no subphrenic gas. BONES AND SOFT TISSUES: No bone or soft tissue abnormalities are noted. IMPRESSION: NO ACTIVE CARDIOPULMONARY DISEASE.
[2017-03-28 12:51] LABS: TSH (Thyroid Stimulating Horm) 3.42 mcIU/mL (0.34-5.60)
[2017-03-28] MEDS ORDERED: Diazepam SYRINGE* 5 MG/ML SYRINGE IV ONE (13:05)
[2017-03-28] MEDS ORDERED: Ketorolac INJ* 15 MG/ML 1 ML VIAL IV PUSH ONE (13:06)
[2017-03-28] MEDS ORDERED: Metoprolol Tartrate TAB* 25 MG PO ONE (13:10)
[2017-03-28] MEDS ORDERED: Magnesium Sulf 4 GM/100 ML IV* 4,000 MG/100 ML BAG IVPB ONE (13:16)
[2017-03-28] MEDS ORDERED: Ondansetron INJ* 2 MG/ML VIAL IV PRN (13:17)
[2017-03-28] MEDS ORDERED: Acetaminophen TAB* 325 MG PO PRN (13:17)
[2017-03-28] MEDS ORDERED: Magnesium Hydroxide LIQ* 30 ML UDC PO PRN (13:17)
[2017-03-28] MEDS ORDERED: Docusate CAP* 100 MG PO PRN (13:17)
[2017-03-28] MEDS ORDERED: Senna TAB PO PRN (13:17)
[2017-03-28] MEDS ORDERED: NS 0.9% 1000 ML* 1,000 ML IV SCH (13:30)
[2017-03-28] MEDS ORDERED: MELATONIN 10 MG PO PRN (13:42)
[2017-03-28] MEDS ORDERED: Lidocaine PATCH 5%* 1 PATCH TRANSDERM SCH (14:00)
--- NOTE | 2017-03-28 14:21 | RAD ---
INDICATION: Constipation COMPARISON: None TECHNIQUE: A single view of the abdomen is submitted. FINDINGS: Bones: There are no acute bony findings. There is left hip arthroplasty. Soft tissues: The soft tissues appear normal. The psoas margins are sharp. Bowel gas pattern: Normal Calcifications: There are no abnormal calcifications. Other: There is a penile prosthesis IMPRESSION: NO ACUTE DIAGNOSTIC FINDINGS.
--- NOTE | 2017-03-28 15:50 | ED ---
Florencia Smith Edward, scribed for Alistair Stern MD on 03/28/17 at 1126 . Palpitations / Dysrhythmia - HPI Summary HPI Summary: 71 y/o male presents to ED c/o increased HR. In the ED course, the patient is found to be in AFIB with RVR. Patient was hospitalized recently (03/10/17) for the same symptoms. He also c/o low back pain that started around a week ago - he was hospitalized for the back pain about a week ago. Patient denies CP, lightheadedness, dizziness, and feelings of his heart pounding. Denies abd pain. Patient states he "feels fine." No PMHx CHF. Patient takes metoprolol and eliquis. - History of Current Complaint Chief Complaint: EDDysrhythmPalp Time Seen by Provider: 03/28/17 11:25 Hx Obtained From: Patient Character: Fast - AFIB with RVR Associated Signs & Symptoms: Negative - Allergy/Home Medications Allergies/Adverse Reactions: Allergies Allergy/AdvReac Type Severity Reaction Status Date / Time Amoxicillin Allergy Rash Verified 06/06/15 15:48 Penicillins Allergy Altered Verified 10/10/16 17:59 Mental Status PMH/Surg Hx/FS Hx/Imm Hx Previously Healthy: No Endocrine/Hematology History: Denies: Hx Diabetes, Hx Thyroid Disease Cardiovascular History: Denies: Hx Hypertension Comment Only: Other Cardiovascular Problems/Disorders - hypotension. Respiratory History: Denies: Hx Asthma, Hx Chronic Obstructive Pulmonary Disease (COPD) GI History: Denies: Hx Ulcer History: Reports: Hx Benign Prostatic Hyperplasia Sensory History: Reports: Hx Legally Blind Denies: Hx Contacts or Glasses, Hx Hearing Aid Opthamlomology History: Reports: Hx Legally Blind Denies: Hx Contacts or Glasses Psychiatric History: Reports: Hx Depression - Cancer History Cancer Type, Location and Year: Throat. Tongue - Surgical History Surgery Procedure, Year, and Place: 4 surgeries on RIGHT foot. Hip Replacement LEFT Infectious Disease History: No Infectious Disease History: Denies: Hx Hepatitis, Hx Human Immunodeficiency Virus (HIV), History Other Infectious Disease, Traveled Outside the [place] in Last 30 Days - Family History Known Family History: Positive: Hypertension - Social History Alcohol Use: Daily Alcohol Amount: "every Night" rum Substance Use Type: Reports: Marijuana Substance Use Comment - Amount & Last Used: "Pot when I can get it" Smoking Status (MU): Never Smoked Tobacco Type: Cigarettes Amount Used/How Often: 1 ppd Length of Time of Smoking/Using Tobacco: 7 years Review of Systems Constitutional: Negative Eyes: Negative ENT: Negative Cardiovascular: Negative Respiratory: Negative Gastrointestinal: Negative Genitourinary: Negative Musculoskeletal: Negative Skin: Negative Neurological: Negative Psychological: Normal All Other Systems Reviewed And Are Negative: Yes Physical Exam - Summary Physical Exam Summary: The patient is well-nourished in no acute distress and in no acute pain. The skin is warm and dry. The patient is pale-looking. HEENT: The head is normocephalic and atraumatic. The pupils are equal and reactive. The conjunctivae are clear and without drainage. Nares are patent and without drainage. Mouth reveals dry mucous membranes and the throat is without erythema and exudate. The external ears are intact. The ear canals are patent and without drainage. The tympanic membranes are intact. Neck is supple with full range of motion and non-tender. There are no carotid bruits. There is no neck vein distension. Respiratory: Chest is non-tender. Lungs are clear to auscultation and breath sounds are symmetrical and equal. Cardiovascular: The patient is tachycardic. There is no murmur or rub auscultated. There is no peripheral edema and pulses are symmetrical and equal. Abdomen: The abdomen is soft and non-tender. There are normal bowel sounds heard in all four quadrants and there is no organomegaly palpated. Musculoskeletal: The patient has difficulty sitting up on his own due to lower back pain. Extremities are non-tender with full range of motion. There is good capillary refill. There is no peripheral edema or calf tenderness elicited. Neurological: Patient is alert and oriented to person, place and time. The patient has symmetrical motor strength in all four extremities. Cranial nerves are grossly intact. Deep tendon reflexes are symmetrical and equal in all four extremities. Psychiatric: The patient has an appropriate affect and does not exhibit any anxiety or depression. Triage Information Reviewed: Yes Vital Signs On Initial Exam: Initial Vitals Temp Pulse Resp Pulse Ox 97.4 F 155 20 100 03/28/17 11:11 03/28/17 11:11 03/28/17 11:11 03/28/17 11:11 Vital Signs Reviewed: Yes Diagnostics - Vital Signs Vital Signs Temp Pulse Resp BP Pulse Ox 03/28/17 11:14 97.5 F 83 20 111/66 98 03/28/17 11:11 97.4 F 155 20 100 - Laboratory Lab Results: Lab Results 03/28/17 03/28/17 03/28/17 Range/Units 11:44 11:44 11:44 WBC 7.8 (3.5-10.8) 10^3/ul RBC 3.47 L (4.0-5.4) 10^6/ul Hgb 12.3 L (14.0-18.0) g/dl Hct 36 L (42-52) % MCV 103 H (80-94) fL MCH 36 H (27-31) pg MCHC 34 (31-36) g/dl RDW 13 (10.5-15) % Plt Count 335 (150-450) 10^3/ul MPV 9 (7.4-10.4) um3 Neut % (Auto) 59.1 (38-83) % Lymph % (Auto) 25.3 (25-47) % [place] % (Auto) 14.6 H (1-9) % Eos % (Auto) 0.4 (0-6) % Baso % (Auto) 0.6 (0-2) % Absolute Neuts (auto) 4.6 (1.5-7.7) 10^3/ul Absolute Lymphs (auto) 2.0 (1.0-4.8) 10^3/ul Absolute Monos (auto) 1.1 H (0-0.8) 10^3/ul Absolute Eos (auto) 0 (0-0.6) 10^3/ul Absolute Basos (auto) 0 (0-0.2) 10^3/ul Absolute Nucleated RBC 0 10^3/ul Nucleated RBC % 0 INR (Anticoag Therapy) 1.69 H (0.89-1.11) Sodium 132 L (133-145) mmol/L Potassium 4.2 (3.5-5.0) mmol/L Chloride 100 L (101-111) mmol/L Carbon Dioxide 25 (22-32) mmol/L Anion Gap 7 (2-11) mmol/L BUN 31 H (6-24) mg/dL Creatinine 1.33 H (0.67-1.17) mg/dL Est GFR ( Amer) 68.0 (>60) Est GFR (Non-Af Amer) 52.9 (>60) BUN/Creatinine Ratio 23.3 H (8-20) Glucose 97 (70-100) mg/dL Lactic Acid (0.5-2.0) mmol/L Calcium 9.4 (8.6-10.3) mg/dL Magnesium 1.6 L (1.9-2.7) mg/dL Total Bilirubin 0.90 (0.2-1.0) mg/dL AST 11 L (13-39) U/L ALT 8 (7-52) U/L Alkaline Phosphatase 63 (34-104) U/L Troponin I 0.01 (<0.04) ng/mL B-Natriuretic Peptide ( - 100) pg/mL Total Protein 7.3 (6.4-8.9) g/dL Albumin 3.8 (3.2-5.2) g/dL Globulin 3.5 (2-4) g/dL Albumin/Globulin Ratio 1.1 (1-3) TSH 3.42 (0.34-5.60) mcIU/mL 03/28/17 03/28/17 Range/Units 11:44 11:44 WBC (3.5-10.8) 10^3/ul RBC (4.0-5.4) 10^6/ul Hgb (14.0-18.0) g/dl Hct (42-52) % MCV (80-94) fL MCH (27-31) pg MCHC (31-36) g/dl RDW (10.5-15) % Plt Count (150-450) 10^3/ul MPV (7.4-10.4) um3 Neut % (Auto) (38-83) % Lymph % (Auto) (25-47) % [place] % (Auto) (1-9) % Eos % (Auto) (0-6) % Baso % (Auto) (0-2) % Absolute Neuts (auto) (1.5-7.7) 10^3/ul Absolute Lymphs (auto) (1.0-4.8) 10^3/ul Absolute Monos (auto) (0-0.8) 10^3/ul Absolute Eos (auto) (0-0.6) 10^3/ul Absolute Basos (auto) (0-0.2) 10^3/ul Absolute Nucleated RBC 10^3/ul Nucleated RBC % INR (Anticoag Therapy) (0.89-1.11) Sodium (133-145) mmol/L Potassium (3.5-5.0) mmol/L Chloride (101-111) mmol/L Carbon Dioxide (22-32) mmol/L Anion Gap (2-11) mmol/L BUN (6-24) mg/dL Creatinine (0.67-1.17) mg/dL Est GFR ( Amer) (>60) Est GFR (Non-Af Amer) (>60) BUN/Creatinine Ratio (8-20) Glucose (70-100) mg/dL Lactic Acid 1.2 (0.5-2.0) mmol/L Calcium (8.6-10.3) mg/dL Magnesium (1.9-2.7) mg/dL Total Bilirubin (0.2-1.0) mg/dL AST (13-39) U/L ALT (7-52) U/L Alkaline Phosphatase (34-104) U/L Troponin I (<0.04) ng/mL B-Natriuretic Peptide 273 H ( - 100) pg/mL Total Protein (6.4-8.9) g/dL Albumin (3.2-5.2) g/dL Globulin (2-4) g/dL Albumin/Globulin Ratio (1-3) TSH (0.34-5.60) mcIU/mL Result Diagrams: 03/28/17 11:44 03/28/17 11:44 Lab Statement: Any lab studies that have been ordered have been reviewed, and results considered in the medical decision making process. - Radiology CXR Xray Interpretation: No Acute Changes - No active cardiopulmonary disease Radiology Interpretation Completed By: Radiologist ABD XRAY Xray Interpretation: No Acute Changes - No acute diagnostic findings. Radiology Interpretation Completed By: Radiologist - EKG 1 EKG Interpretation: 11:24 - AFIB with RVR @ 141 bpm. No STEMI. Course/Dx - Course Assessment/Plan: Patient presents to ED in AFIB with RVR. Patient was hospitalized for the same symptoms on 03/10/17. EKG - 11:24 - AFIB with RVR @ 141 bpm. No STEMI. CXR showed no active cardiopulmonary disease. ABD XR showed no acute diagnostic findings. Spoke with Dr. Shana Drew @ 12:20 who agreed to admit patient. - Diagnoses Differential Diagnosis/HQI/PQRI: Positive: Congestive Heart Failure, Coronary Artery Disease, Hypokalemia, Other - atrial fibrillation with rvr, Provider Diagnoses: Atrial fibrillation with RVR, Dehydration, Renal failure Discharge - Discharge Plan Condition: Stable Disposition: ADMITTED TO [facility] documentation as recorded by the Florencia espinoza Edward accurately reflects the service I personally performed and the decisions made by Jarred hicks Drew, MD.
--- NOTE | 2017-03-28 16:06 | HP ---
CC: Dr. Ana Luisa Berg MD * MEDICINE HISTORY AND PHYSICAL: DATE OF ADMISSION: 03/28/17 PROVIDER: Kaylyn Mills NP ATTENDING PHYSICIAN: Shana Walsh MD * (as dictated by Kaylyn Mills NP). PRIMARY CARE PROVIDER: Ana Luisa Berg MD CHIEF COMPLAINT: Back pain. HISTORY OF PRESENT ILLNESS: Mr. Martinez is a 71-year-old male patient who was recently [place] [facility] with a diagnosis of new atrial fibrillation with RVR with noted hypomagnesemia and elevated creatinine. Mr. Martinez reports being asymptomatic prior to admission and after discharge in regards to his AFib, denying any chest pain or trouble breathing. However, the patient did have concern for intractable back pain and presented to the ER on both 03/20/17 and 03/21/17 and was discharged both times home with prescription of lorazepam for back spasms and instruction to follow up with his PCP. The patient did have some imaging done of his spine, which showed multiple healed and chronic appearing bilateral inferior rib fractures, osteoporotic appearing compression fractures involving the superior endplates of the T11, T12 , L1 and L2 vertebral bodies without gross cortical disruption or trabecular impaction to favor acute or subacute fracture. Multilevel advanced degenerative spondylosis and facet joint osteoarthritis with acquired central canal and foraminal stenosis as described level by level. The patient reports minimal relief to his pain. Of note, he is very forgetful and has poor short-term memory and his son is accompanying him and helps to provide the history. Per the son, at baseline the patient is relatively sedentary and is also legally blind. He does not attempt to ambulate within his apartment very much without his bacteriology technician present who comes for a few hours each day during the week. With his new back pain complaints, the patient has been even less ambulatory and reluctant to move. The patient denies any new neuropathy and states that he can stand, but it hurts to do so. At baseline, he does have some urinary and bowel incontinence, but this has not changed per the son. There is concern for returning to home in his current condition and the son feels he may have to pursue a rehab option. The patient would be agreeable to this, but states that he is concerned that he has so much pain and that he would not be willing to walk unless his pain is controlled. In regards to the patient's atrial fibrillation, again, since discharge, the patient denies being symptomatic with this; however, in his visits to the ER and his primary care doctor, it is noted that his heart rate is elevated. As there may be a pain component here that is contributing to his elevated heart rate, it is difficult to say if the patient is controlled when his pain controlled, and his heart rate has not yet been captured when the patient's pain is controlled. Here in the ER, the patient presented with atrial fibrillation with rapid ventricular response of rate in the 140s. He does have a history of hypotension, which previously made it difficult to control the patient's blood pressure while he was here as an inpatient and obtain good rate control. Prior to discharge, the patient's average rate was approximately 99 beats per minute with a goal set by Cardiology of less than 100 beats per minute. Currently, he is on a Cardizem drip and his blood pressures are holding with the heart rate running between the 100s to 120s. The patient's labs are significant for some macrocytosis, which was present on previous admission as well as mild hyponatremia with a sodium of 132, magnesium of 1.6, BUN 31 and creatinine 1.33. The patient reports decreased p.o. intake as well as no bowel movement for what he says is x1 week, but his son feels may be not quite accurate. PAST MEDICAL HISTORY: 1. Laryngeal cancer diagnosed in 1995. 2. Previous head and neck cancer. 3. 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 4. Major depressive disorder. 5. Alcohol abuse with alcohol-induced mood disorder. 6. History of rib fractures in September 2016. 7. Legal blindness. 8. Insomnia. 9. BPH. 10. Seborrheic dermatitis. 11. Pityriasis versicolor. 12. Tinea cruris. 13. 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 HOME MEDICATIONS: 1. Trazodone 75 mg at bedtime. 2. Triamcinolone 0.025% one application topical daily p.r.n. 3. Tamsulosin 0.4 mg daily. 4. Omeprazole 20 mg daily. 5. Metoprolol tartrate 50 mg q.12 hours. 6. Melatonin 10 mg at bedtime p.r.n. 7. Lorazepam 1 mg q.6 hours p.r.n. 8. Ketoconazole 2% cream 1 application topical twice a week. 9. Ibuprofen 200 mg q.6 hours p.r.n. 10. [place] 5/325 one tab b.i.d. p.r.n. 11. Gabapentin 300 mg q.a.m. and 200 mg q.p.m. 12. Fluoxetine 20 mg daily. 13. Cholecalciferol 50,000 units monthly. 14. Calcium and vitamin D supplement 1 tab daily. 15. Apixaban 5 mg b.i.d. ALLERGIES: Include AMOXICILLIN and PENICILLIN. FAMILY HISTORY: Reviewed and noncontributory. SOCIAL HISTORY: The patient is a former tobacco user. He endorses regular alcohol drinking, but states has been decreased since his last discharge. His son reports that he most likely has perhaps a few ounces of rum per day. The patient reports marijuana use ("whenever he can get it"). He lives at home by himself, but does have a private primary bacteriology technician who is in the home for 3-1/2 hours a day. His son, Sorin Martinez, is his healthcare proxy. At baseline, the patient does utilize a walker. REVIEW OF SYSTEMS: As per HPI. A 14-point review of systems was attempted to be completed. The patient is a poor historian with poor short-term memory. PHYSICAL EXAMINATION GENERAL: Mr. Martinez is an older male patient, who is lying in the ED stretcher. He does appear to be moderately uncomfortable. He is restless. He is unable to roll over onto his side for posterior assessment. VITAL SIGNS: Temperature 97.5, heart rate currently 144, respiratory rate 18, blood pressure 116/80, and O2 saturation is 99% on room air. HEENT: Head is atraumatic, normocephalic. Face is symmetrical. The patient is legally blind. Hearing appears grossly intact. Oral mucosa appeared somewhat dry. There is no oropharyngeal erythema or exudate noted. NECK: Supple. No lymphadenopathy appreciated. The patient has full range of motion to the neck. No JVD noted. CARDIAC: Irregularly irregular rate and rhythm. No murmurs, rubs, or gallops appreciated. There is no lower extremity edema. The patient has 1+ distal pulses to lower extremities. RESPIRATORY: Lungs are clear to auscultation bilaterally with no accessory muscle use. ABDOMEN: Soft, nontender, nondistended. No masses appreciated. Bowel sounds present times all 4 quadrants. MUSCULOSKELETAL: There is no clubbing or cyanosis. The patient appears to have full range of motion to the upper and lower extremities, but limited range of motion to the back at this time. SKIN: Limited assessment. The patient has some minor abrasions to the upper and lower extremities. NEUROLOGIC: The patient moves all extremities. He has no focal neurological deficits. He has short-term memory loss as evidenced by asking the same questions within a 5-minute period and forgetting the answer. He does follow commands. Sensation is intact to pinprick and light touch to the lower extremities. PSYCHIATRIC: He is alert. He is oriented to self, place and situation, though disoriented to time. Affect is appropriate. LABORATORY DATA AND DIAGNOSTIC STUDIES: CBC: WBC 7.8, hemoglobin 12.3, hematocrit 36, platelet count 335. INR 1.69. CMP: Sodium 132, potassium 4.2, chloride 100, carbon dioxide 25, BUN 31, creatinine 1.33, glucose 97, lactic acid 1.2, calcium 9.4, magnesium 1.6. Total bilirubin 0.9, AST 11, ALT 8, alk phos 53. Troponin 0.01. Total protein 7.3, albumin 3.8. TSH 3.42. The patient's EKG shows atrial fibrillation at the rate of 141. No T-wave inversions or ST elevations noted. Chest x-ray shows no active cardiopulmonary disease. Old medical records are reviewed. ASSESSMENT AND PLAN: Mr. Martinez is a 71-year-old male patient who presents today with concern for intractable back pain and was found to be in atrial fibrillation with rapid ventricular response. The plan is as follows: 1. Atrial fibrillation with rapid ventricular response. Again, I suspected with a pain component to this, but it appears that patient has not maintained good rate control in the outpatient setting. He has not yet followed up with his forest ecologist and endorses a 10-day history of severe back pain. He remains asymptomatic. At this time, we will continue his home metoprolol. It is unclear if he took his medications today or last evening. Plan to restart these medications, give an extra dose of metoprolol 25 mg right now, and switch his diltiazem drip to p.o. diltiazem q.6 hours with careful attention to his blood pressure. The patient may benefit from a repeat cardiology consult in the event that we need to start amiodarone or another medication. I am hesitant to place him on digoxin at this time, as he does have some renal insufficiency that appears to be chronic. At this point, I will medicate the patient for pain as he is still in significant amount of pain and continue to monitor his heart rate on telemetry. He will be receiving IV fluids, as he does appear to be somewhat dry, and we also replaced his magnesium, which is currently low. We will also continue the patient's Eliquis as he does have a CHAD2- VASc score of 1 for age. 2. Hypomagnesemia. Suspect this is chronic secondary to long-term alcohol use. Replete mag and recheck in the a.m. 3. Elevated creatinine and BUN. Appears to be acute on chronic kidney injury. The patient's creatinine upon last admission trended between 1.17 to 1.3. However, the patient did not have BUN elevation upon last admission, so this likely indicates that the patient has some dehydration as evidenced by the son' s report of poor p.o. intake over the past few days. We will give him a liter of fluid and recheck his BMP tomorrow. 4. Hyponatremia. Again suspect hypovolemia. Replete volume with IV normal saline and recheck BMP. 5. Macrocytosis, suspect this is chronic secondary to alcohol use. The patient had previous B12 and folate checked on last admission, which was normal. Continue outpatient followup with PCP. 6. Glossodynia. Continue home gabapentin and p.r.n. hydrocodone. 7. History of depression. Continue home trazodone and fluoxetine. 8. Insomnia. Continue melatonin. 9. Intractable back pain. The patient will receive a 1 time dose of diazepam and Toradol here in the ER, and we will also start him on lidocaine patch and have p.r.n. Flexeril available to the patient. With his renal insufficiency, I am hesitant to put him on ibuprofen or NSAIDs, although he does take a small dose of this at home as needed. We will attempt to control his pain with his [place], lidocaine patch and p.r.n. acetaminophen as the patient does have relatively normal liver function. PT and OT have also been ordered as the patient may benefit from subacute rehab. Plan to check an MRI of the spine, given the severity of the patient's complaints. 10. Benign prostatic hypertrophy. Continue tamsulosin. 11. FEN: The patient is ordered a heart healthy diet with no caffeine. Continue IV hydration. 12. DVT prophylaxis: Continue apixaban. 13. Code status: The patient is a full code. TIME SPENT: Time spent on this admission was approximately 60 minutes, more than half the time was spent [id number] with the patient obtaining history and physical, performing the physical examination, and reviewing the plan of care. Plan of care was also reviewed with my attending, Dr. Walsh, who is in agreement. KAYLYN MILLS, SEKOU [id number]/CPS #: [id number] MTDNhan
[2017-03-28] MEDS: Acetaminophen TAB* 325 MG PO SCH ×2 (16:37→21:23)
[2017-03-28] MEDS: Gabapentin CAP(*) 100 MG PO SCH (17:32)
[2017-03-28] MEDS: Diltiazem TAB* 30 MG PO SCH ×2 (17:32→23:10)
[2017-03-28] MEDS ORDERED: Metoprolol Tartrate IV* 1 MG/ML 5 ML VIAL IV PRN (19:42)
[2017-03-28] MEDS: Metoprolol Tartrate TAB* 50 mg PO SCH (21:23)
[2017-03-28] MEDS: traZODone TAB* 50 MG TAB PO SCH (21:23)
[2017-03-28] MEDS: Apixaban* 5 MG TAB PO SCH (21:23)
[2017-03-28] MEDS: Lidocaine Patch REMOVE* 1 NOTE MISC SCH (21:27)
[2017-03-29] MEDS: Diltiazem TAB* 30 MG PO SCH ×3 (05:06→17:00)
[2017-03-29] MEDS: Acetaminophen TAB* 325 MG PO SCH (05:09)
[2017-03-29 05:43] LABS: Hematocrit 33 % (42-52); Hemoglobin 11.2 g/dl (14.0-18.0); Mean Corpuscular HGB Conc 34 g/dl (31-36); Mean Corpuscular Hemoglobin 35 pg (27-31); Mean Corpuscular Volume 104 fL (80-94); Mean Platelet Volume 10 um3 (7.4-10.4); Red Blood Count 3.17 10^6/ul (4.0-5.4); Red Cell Distribution Width 13 % (10.5-15); White Blood Count 6.2 10^3/ul (3.5-10.8)
[2017-03-29 05:55] LABS: BUN/Creatinine Ratio 21.8 (8-20); Calcium 8.9 mg/dL (8.6-10.3); EGFR African American 77.3 (>60); EGFR Non-African American 60.1 (>60); Magnesium 2.4 mg/dL (1.9-2.7)
--- NOTE | 2017-03-29 07:45 | RAD ---
HISTORY: Intractable back pain COMPARISONS: CT dated March 20, 2017 TECHNIQUE: The following sequences were obtained of the lumbar spine: Sagittal and axial T1- and T2-weighted images, coronal T2-weighted images, and sagittal STIR images. FINDINGS: SPINAL CORD, CONUS, AND CAUDA EQUINA: The visualized spinal cord, conus, and cauda equina are normal in caliber, position, and signal intensity. ALIGNMENT: The alignment is normal. VERTEBRAL BODIES: There is multilevel anterolateral marginal osteophyte formation. There is a large Schmorl's node of the superior endplate of L2 with extensive associated mixed Modic type I and type III reactive endplate change centered at L1-L2. There are Modic type I changes also noted at L3-L4 and L2-L3 JOINTS: There is multilevel facet osteoarthritis MUSCULATURE: Unremarkable INTERVERTEBRAL DISCS: There is diffuse loss of intervertebral disc height and T2 signal throughout the spine. AXIAL IMAGES: T10-T11: There is no significant neural foraminal narrowing or central canal stenosis. T11-T12: There is no significant neural foraminal narrowing or central canal stenosis. T12-L1: There is no disc herniation, spinal stenosis, or neuroforaminal narrowing. L1-L2: There is a broad-based disc bulge. There is bilateral facet hypertrophy. There is no significant neural foraminal narrowing or central stenosis. L2-L3: There is broad-based disc bulge with ligamentous and facet hypertrophy. There is bilateral facet hypertrophy. There is mild prominence of the epidural fat. There is mild narrowing of central canal. There is mild bilateral neural foraminal narrowing. L3-L4: There is broad-based disc bulge at bilateral facet hypertrophy. There is marginal osteophyte formation at the neural foramina bilaterally. There is prominence of the epidural fat. There is moderate bilateral neural foraminal narrowing. There is moderate narrowing of central canal. L4-L5: There is bilateral facet hypertrophy. There is marginal osteophyte formation at the neural foramina bilaterally. There is severe bilateral neural foraminal narrowing. There is mild narrowing of central canal. L5-S1: There is bilateral facet hypertrophy. There is marginal osteophyte formation at the neural foramina bilaterally. There is severe right neural foraminal narrowing. There is central canal stenosis SOFT TISSUES: As noted above, there is prominence of the epidural fat at multiple levels consistent with epidural lipomatosis OTHER: None. IMPRESSION: 1. DEGENERATIVE DISC DISEASE AND OSTEOARTHRITIS. 2. THERE ARE EXTENSIVE REACTIVE END PLATE CHANGES, MOST PRONOUNCED AROUND A SCHMORL'S NODE AT L1-L2. 3. THERE IS EPIDURAL LIPOMATOSIS. 4. THERE IS MODERATE NARROWING OF CENTRAL CANAL AT L3-L4 WITH MILD NARROWING AT L4-L5 AND L2-L3. 5. THERE IS MULTILEVEL NEURAL FORAMINAL NARROWING DESCRIBED ABOVE
[2017-03-29] MEDS: Metoprolol Tartrate TAB* 50 mg PO SCH ×2 (08:11→20:57)
[2017-03-29] MEDS ORDERED: Metoprolol Tartrate TAB* 25 MG PO ONE (08:11)
[2017-03-29] MEDS: FLUoxetine CAP* 20 MG PO SCH (09:33)
[2017-03-29] MEDS: Calcium/Vitamin D TAB 250/125* TAB PO SCH (09:33)
[2017-03-29] MEDS: Omeprazole CAP* 20 MG PO SCH (09:33)
[2017-03-29] MEDS: Tamsulosin CAP* 0.4 MG PO SCH (09:33)
[2017-03-29] MEDS: Gabapentin CAP(*) 300 MG PO SCH (09:34)
[2017-03-29] MEDS: Apixaban* 5 MG TAB PO SCH ×2 (09:34→20:58)
[2017-03-29] MEDS: Lidocaine PATCH 5%* 1 PATCH TRANSDERM SCH (12:17)
--- NOTE | 2017-03-29 15:45 | PN ---
Subjective Date of Service: 03/29/17 Interval History: Pain in back is completely resolved dose of diltiazem held this AM as well as metoprolol rate controlled on monitor Objective Active Medications: Acetaminophen (Tylenol Tab*) 650 mg PO Q4H PRN PRN Reason: FEVER/PAIN Hydrocodone Bitart/Acetaminophen (Jewell 5-325 Tab*) 1 tab PO BID PRN PRN Reason: PAIN Apixaban (Eliquis*) 5 mg PO BID [facility] Last Admin: 03/29/17 09:34 Dose: 5 mg Calcium/Vitamin D (Oscal D Tab 250/125*) 1 tab PO DAILY [facility] Last Admin: 03/29/17 09:33 Dose: 1 tab Cyclobenzaprine HCl (Flexeril Tab*) 10 mg PO TID PRN PRN Reason: SPASMS - MUSCLE Diltiazem HCl (Cardizem Tab*) 30 mg PO Q6HR [facility] Last Admin: 03/29/17 12:16 Dose: 30 mg Docusate Sodium (Colace Cap*) 100 mg PO BID PRN PRN Reason: CONSTIPATION Fluoxetine HCl (Prozac Cap*) 20 mg PO DAILY [facility] Last Admin: 03/29/17 09:33 Dose: 20 mg Gabapentin (Neurontin Cap(*)) 200 mg PO QPM [facility] Last Admin: 03/28/17 17:32 Dose: 200 mg Gabapentin (Neurontin Cap(*)) 300 mg PO QAM [facility] Last Admin: 03/29/17 09:34 Dose: 300 mg Lidocaine (Lidoderm 5% Patch*) 1 patch TRANSDERM DAILY [facility] Last Admin: 03/29/17 12:17 Dose: 1 patch Magnesium Hydroxide (Milk Of Magnesia Liq*) 30 ml PO Q4H PRN PRN Reason: CONSTIPATION Metoprolol Tartrate (Lopressor Tab*) 50 mg PO Q12HR [facility] Last Admin: 03/29/17 08:11 Dose: Not Given Metoprolol Tartrate (Lopressor Iv*) 5 mg IV Q6H PRN PRN Reason: HEART RATE/PULSE Last Admin: 03/28/17 23:25 Dose: 5 mg Nfm:Melatonin 10 Mg (Tablet) 10 mg PO BEDTIME PRN PRN Reason: SLEEP Omeprazole (Prilosec Cap*) 20 mg PO DAILY@0730 [facility] Last Admin: 03/29/17 09:33 Dose: 20 mg Ondansetron HCl (Zofran Inj*) 4 mg IV Q6H PRN PRN Reason: NAUSEA/VOMITING Pharmacy Profile Note (Lidocaine Patch Remove*) 1 note N/A 2100 [facility] Last Admin: 03/28/17 21:27 Dose: Not Given Senna (Senokot Tab*) 1 tab PO BID PRN PRN Reason: CONSTIPATION Tamsulosin HCl (Flomax Cap*) 0.4 mg PO DAILY [facility] Last Admin: 03/29/17 09:33 Dose: 0.4 mg Trazodone HCl (Desyrel Tab*) 75 mg PO BEDTIME [facility] Last Admin: 03/28/17 21:23 Dose: 75 mg Vital Signs 03/29/17 03/29/17 11:34 12:06 Temperature 98.3 F Pulse Rate 89 Respiratory 18 18 Rate Blood Pressure 101/74 (mmHg) O2 Sat by Pulse 99 Oximetry Oxygen Devices in Use Now: None Appearance: NAD Eyes: No Scleral Icterus, PERRLA Ears/Nose/Mouth/Throat: Clear Oropharnyx, Mucous Membranes Moist Neck: NL Appearance and Movements; NL JVP, Trachea Midline Respiratory: Symmetrical Chest Expansion and Respiratory Effort, Clear to Auscultation Cardiovascular: - - IRIR Abdominal: NL Sounds; No Tenderness; No Distention Lymphatic: No Cervical Adenopathy Neurological: Alert and Oriented x 3 Result Diagrams: 03/29/17 05:34 03/29/17 05:34 Additional Lab and Data: Lab Results 03/28/17 03/28/17 03/28/17 Range/Units 11:44 11:44 11:44 WBC 7.8 (3.5-10.8) 10^3/ul RBC 3.47 L (4.0-5.4) 10^6/ul Hgb 12.3 L (14.0-18.0) g/dl Hct 36 L (42-52) % MCV 103 H (80-94) fL MCH 36 H (27-31) pg MCHC 34 (31-36) g/dl RDW 13 (10.5-15) % Plt Count 335 (150-450) 10^3/ul MPV 9 (7.4-10.4) um3 Neut % (Auto) 59.1 (38-83) % Lymph % (Auto) 25.3 (25-47) % Kings % (Auto) 14.6 H (1-9) % Eos % (Auto) 0.4 (0-6) % Baso % (Auto) 0.6 (0-2) % Absolute Neuts (auto) 4.6 (1.5-7.7) 10^3/ul Absolute Lymphs (auto) 2.0 (1.0-4.8) 10^3/ul Absolute Monos (auto) 1.1 H (0-0.8) 10^3/ul Absolute Eos (auto) 0 (0-0.6) 10^3/ul Absolute Basos (auto) 0 (0-0.2) 10^3/ul Absolute Nucleated RBC 0 10^3/ul Nucleated RBC % 0 INR (Anticoag Therapy) 1.69 H (0.89-1.11) Sodium 132 L (133-145) mmol/L Potassium 4.2 (3.5-5.0) mmol/L Chloride 100 L (101-111) mmol/L Carbon Dioxide 25 (22-32) mmol/L Anion Gap 7 (2-11) mmol/L BUN 31 H (6-24) mg/dL Creatinine 1.33 H (0.67-1.17) mg/dL Est GFR ( Amer) 68.0 (>60) Est GFR (Non-Af Amer) 52.9 (>60) BUN/Creatinine Ratio 23.3 H (8-20) Glucose 97 (70-100) mg/dL Lactic Acid (0.5-2.0) mmol/L Calcium 9.4 (8.6-10.3) mg/dL Magnesium 1.6 L (1.9-2.7) mg/dL Total Bilirubin 0.90 (0.2-1.0) mg/dL AST 11 L (13-39) U/L ALT 8 (7-52) U/L Alkaline Phosphatase 63 (34-104) U/L Troponin I 0.01 (<0.04) ng/mL B-Natriuretic Peptide ( - 100) pg/mL Total Protein 7.3 (6.4-8.9) g/dL Albumin 3.8 (3.2-5.2) g/dL Globulin 3.5 (2-4) g/dL Albumin/Globulin Ratio 1.1 (1-3) TSH 3.42 (0.34-5.60) mcIU/mL 03/28/17 03/28/17 Range/Units 11:44 11:44 WBC (3.5-10.8) 10^3/ul RBC (4.0-5.4) 10^6/ul Hgb (14.0-18.0) g/dl Hct (42-52) % MCV (80-94) fL MCH (27-31) pg MCHC (31-36) g/dl RDW (10.5-15) % Plt Count (150-450) 10^3/ul MPV (7.4-10.4) um3 Neut % (Auto) (38-83) % Lymph % (Auto) (25-47) % Kings % (Auto) (1-9) % Eos % (Auto) (0-6) % Baso % (Auto) (0-2) % Absolute Neuts (auto) (1.5-7.7) 10^3/ul Absolute Lymphs (auto) (1.0-4.8) 10^3/ul Absolute Monos (auto) (0-0.8) 10^3/ul Absolute Eos (auto) (0-0.6) 10^3/ul Absolute Basos (auto) (0-0.2) 10^3/ul Absolute Nucleated RBC 10^3/ul Nucleated RBC % INR (Anticoag Therapy) (0.89-1.11) Sodium (133-145) mmol/L Potassium (3.5-5.0) mmol/L Chloride (101-111) mmol/L Carbon Dioxide (22-32) mmol/L Anion Gap (2-11) mmol/L BUN (6-24) mg/dL Creatinine (0.67-1.17) mg/dL Est GFR ( Amer) (>60) Est GFR (Non-Af Amer) (>60) BUN/Creatinine Ratio (8-20) Glucose (70-100) mg/dL Lactic Acid 1.2 (0.5-2.0) mmol/L Calcium (8.6-10.3) mg/dL Magnesium (1.9-2.7) mg/dL Total Bilirubin (0.2-1.0) mg/dL AST (13-39) U/L ALT (7-52) U/L Alkaline Phosphatase (34-104) U/L Troponin I (<0.04) ng/mL B-Natriuretic Peptide 273 H ( - 100) pg/mL Total Protein (6.4-8.9) g/dL Albumin (3.2-5.2) g/dL Globulin (2-4) g/dL Albumin/Globulin Ratio (1-3) TSH (0.34-5.60) mcIU/mL Assess/Plan/Problems-Billing Assessment: 71 yo M p/w afib RVR and intractable back pain - Patient Problems (1) Intractable back pain Comment: resolved (2) Hyponatremia Comment: improved (3) Atrial fibrillation Comment: With RVR metoprolol and diltiazem (4) Insomnia Comment: Continue trazodone, prn melatonin (5) DVT prophylaxis Comment: antonio
[2017-03-29 16:05] LABS: Alcohol < 10 mg/dL (<10)
[2017-03-29] MEDS: Gabapentin CAP(*) 100 MG PO SCH (17:10)
[2017-03-29] MEDS: HYDROcodone/ACETAMIN 5-325 MG* 1 TAB PO PRN (20:57)
[2017-03-29] MEDS: traZODone TAB* 50 MG TAB PO SCH (20:58)
[2017-03-29] MEDS: Lidocaine Patch REMOVE* 1 NOTE MISC SCH (21:06)
[2017-03-30] MEDS: Cyclobenzaprine TAB* 10 MG PO PRN ×3 (00:29→23:38)
[2017-03-30] MEDS: Acetaminophen TAB* 325 MG PO PRN ×3 (00:30→23:37)
[2017-03-30] MEDS: Diltiazem TAB* 30 MG PO SCH ×2 (00:31→05:29)
[2017-03-30 01:09] LABS: Urine Bilirubin Negative (Negative); Urine Glucose Negative (Negative); Urine Nitrite Negative (Negative)
[2017-03-30] MEDS: Metoprolol Tartrate TAB* 50 mg PO SCH (08:01)
[2017-03-30] MEDS: Tamsulosin CAP* 0.4 MG PO SCH (08:12)
[2017-03-30] MEDS: Gabapentin CAP(*) 300 MG PO SCH (08:12)
[2017-03-30] MEDS: Omeprazole CAP* 20 MG PO SCH (08:12)
[2017-03-30] MEDS: Apixaban* 5 MG TAB PO SCH ×2 (08:12→23:38)
[2017-03-30] MEDS: Calcium/Vitamin D TAB 250/125* TAB PO SCH (08:12)
[2017-03-30] MEDS: FLUoxetine CAP* 20 MG PO SCH (08:12)
[2017-03-30] MEDS: Lidocaine PATCH 5%* 1 PATCH TRANSDERM SCH (08:13)
[2017-03-30] MEDS ORDERED: NS 0.9% 1000 ML* 500 ML IV ONE (08:15)
[2017-03-30] MEDS ORDERED: Digoxin IV* 0.5 MG/2 ML AMP (0.25 MG/ML) IV SLOW PU ONE (10:12)
[2017-03-30] MEDS: Digoxin IV* 0.5 MG/2 ML AMP (0.25 MG/ML) IV SLOW PU SCH ×2 (15:18→20:03)
[2017-03-30] MEDS: HYDROcodone/ACETAMIN 5-325 MG* 1 TAB PO PRN (15:31)
[2017-03-30] MEDS: Gabapentin CAP(*) 100 MG PO SCH (17:42)
--- NOTE | 2017-03-30 18:40 | PN ---
Subjective Date of Service: 03/30/17 Interval History: minimal back pain HR not controlled, has missed several doses AV callum blockade 2/2 low BP wants to leave but will stay given uncontrolled HR Objective Active Medications: Acetaminophen (Tylenol Tab*) 650 mg PO Q4H PRN PRN Reason: FEVER/PAIN Last Admin: 03/30/17 06:02 Dose: 650 mg Hydrocodone Bitart/Acetaminophen ([place] 5-325 Tab*) 1 tab PO BID PRN PRN Reason: PAIN Last Admin: 03/30/17 15:31 Dose: 1 tab Apixaban (Eliquis*) 5 mg PO BID [facility] Last Admin: 03/30/17 08:12 Dose: 5 mg Calcium/Vitamin D (Oscal D Tab 250/125*) 1 tab PO DAILY [facility] Last Admin: 03/30/17 08:12 Dose: 1 tab Cyclobenzaprine HCl (Flexeril Tab*) 10 mg PO TID PRN PRN Reason: SPASMS - MUSCLE Last Admin: 03/30/17 06:02 Dose: 10 mg Digoxin (Digoxin Iv*) 0.25 mg IV SLOW PU Q4H [facility] Stop: 03/30/17 19:01 Last Admin: 03/30/17 15:18 Dose: 0.25 mg Digoxin (Lanoxin Tab*) 0.125 mg PO DAILY [facility] Docusate Sodium (Colace Cap*) 100 mg PO BID PRN PRN Reason: CONSTIPATION Fluoxetine HCl (Prozac Cap*) 20 mg PO DAILY [facility] Last Admin: 03/30/17 08:12 Dose: 20 mg Gabapentin (Neurontin Cap(*)) 200 mg PO QPM [facility] Last Admin: 03/30/17 17:42 Dose: 200 mg Gabapentin (Neurontin Cap(*)) 300 mg PO QAM [facility] Last Admin: 03/30/17 08:12 Dose: 300 mg Lidocaine (Lidoderm 5% Patch*) 1 patch TRANSDERM DAILY [facility] Last Admin: 03/30/17 08:13 Dose: 1 patch Magnesium Hydroxide (Milk Of Magnesia Liq*) 30 ml PO Q4H PRN PRN Reason: CONSTIPATION Metoprolol Tartrate (Lopressor Tab*) 25 mg PO Q12HR [facility] Nfm:Melatonin 10 Mg (Tablet) 10 mg PO BEDTIME PRN PRN Reason: SLEEP Omeprazole (Prilosec Cap*) 20 mg PO DAILY@0730 [facility] Last Admin: 03/30/17 08:12 Dose: 20 mg Ondansetron HCl (Zofran Inj*) 4 mg IV Q6H PRN PRN Reason: NAUSEA/VOMITING Pharmacy Profile Note (Lidocaine Patch Remove*) 1 note N/A 2100 [facility] Last Admin: 03/29/17 21:06 Dose: 1 note Senna (Senokot Tab*) 1 tab PO BID PRN PRN Reason: CONSTIPATION Tamsulosin HCl (Flomax Cap*) 0.4 mg PO DAILY [facility] Last Admin: 03/30/17 08:12 Dose: 0.4 mg Trazodone HCl (Desyrel Tab*) 75 mg PO BEDTIME [facility] Last Admin: 03/29/17 20:58 Dose: 75 mg Vital Signs 03/29/17 03/29/17 03/29/17 19:10 19:32 20:00 Temperature 97.3 F Pulse Rate 125 Respiratory 20 16 16 Rate Blood Pressure 102/60 (mmHg) O2 Sat by Pulse 99 Oximetry 03/29/17 03/29/17 03/29/17 20:51 20:57 22:57 Temperature Pulse Rate 131 Respiratory 20 17 Rate Blood Pressure 101/68 (mmHg) O2 Sat by Pulse Oximetry 03/30/17 03/30/17 03/30/17 00:14 00:29 02:29 Temperature 97.6 F Pulse Rate 122 Respiratory 16 17 16 Rate Blood Pressure 103/52 (mmHg) O2 Sat by Pulse 97 Oximetry 03/30/17 03/30/17 03/30/17 04:21 06:02 07:15 Temperature 97.4 F Pulse Rate 125 Respiratory 16 18 20 Rate Blood Pressure 82/63 (mmHg) O2 Sat by Pulse 97 Oximetry 03/30/17 03/30/17 03/30/17 07:46 08:02 08:12 Temperature 97.5 F Pulse Rate 118 Respiratory 16 20 20 Rate Blood Pressure 89/55 (mmHg) O2 Sat by Pulse 96 Oximetry 03/30/17 03/30/17 03/30/17 10:12 10:41 10:44 Temperature Pulse Rate 120 Respiratory 16 Rate Blood Pressure 92/60 (mmHg) O2 Sat by Pulse Oximetry 03/30/17 03/30/17 03/30/17 11:06 13:33 15:18 Temperature 97.6 F Pulse Rate 128 104 Respiratory 20 Rate Blood Pressure 102/64 (mmHg) O2 Sat by Pulse 98 Oximetry 03/30/17 03/30/17 03/30/17 15:25 15:31 17:42 Temperature 97.8 F Pulse Rate 130 Respiratory 20 20 20 Rate Blood Pressure 101/78 (mmHg) O2 Sat by Pulse 98 Oximetry Oxygen Devices in Use Now: None Appearance: NAD Eyes: No Scleral Icterus, PERRLA Ears/Nose/Mouth/Throat: Clear Oropharnyx, Mucous Membranes Moist Neck: NL Appearance and Movements; NL JVP, Trachea Midline Respiratory: Symmetrical Chest Expansion and Respiratory Effort, - - trace rales in bases Cardiovascular: - - IRIR, rapid Abdominal: NL Sounds; No Tenderness; No Distention, No Hepatosplenomegaly Lymphatic: No Cervical Adenopathy Extremities: No Edema Neurological: Alert and Oriented x 3 Result Diagrams: 03/29/17 05:34 03/29/17 05:34 Additional Lab and Data: Lab Results 03/28/17 03/28/17 03/28/17 Range/Units 11:44 11:44 11:44 WBC 7.8 (3.5-10.8) 10^3/ul RBC 3.47 L (4.0-5.4) 10^6/ul Hgb 12.3 L (14.0-18.0) g/dl Hct 36 L (42-52) % MCV 103 H (80-94) fL MCH 36 H (27-31) pg MCHC 34 (31-36) g/dl RDW 13 (10.5-15) % Plt Count 335 (150-450) 10^3/ul MPV 9 (7.4-10.4) um3 Neut % (Auto) 59.1 (38-83) % Lymph % (Auto) 25.3 (25-47) % [place] % (Auto) 14.6 H (1-9) % Eos % (Auto) 0.4 (0-6) % Baso % (Auto) 0.6 (0-2) % Absolute Neuts (auto) 4.6 (1.5-7.7) 10^3/ul Absolute Lymphs (auto) 2.0 (1.0-4.8) 10^3/ul Absolute Monos (auto) 1.1 H (0-0.8) 10^3/ul Absolute Eos (auto) 0 (0-0.6) 10^3/ul Absolute Basos (auto) 0 (0-0.2) 10^3/ul Absolute Nucleated RBC 0 10^3/ul Nucleated RBC % 0 INR (Anticoag Therapy) 1.69 H (0.89-1.11) Sodium 132 L (133-145) mmol/L Potassium 4.2 (3.5-5.0) mmol/L Chloride 100 L (101-111) mmol/L Carbon Dioxide 25 (22-32) mmol/L Anion Gap 7 (2-11) mmol/L BUN 31 H (6-24) mg/dL Creatinine 1.33 H (0.67-1.17) mg/dL Est GFR ( Amer) 68.0 (>60) Est GFR (Non-Af Amer) 52.9 (>60) BUN/Creatinine Ratio 23.3 H (8-20) Glucose 97 (70-100) mg/dL Lactic Acid (0.5-2.0) mmol/L Calcium 9.4 (8.6-10.3) mg/dL Magnesium 1.6 L (1.9-2.7) mg/dL Total Bilirubin 0.90 (0.2-1.0) mg/dL AST 11 L (13-39) U/L ALT 8 (7-52) U/L Alkaline Phosphatase 63 (34-104) U/L Troponin I 0.01 (<0.04) ng/mL B-Natriuretic Peptide ( - 100) pg/mL Total Protein 7.3 (6.4-8.9) g/dL Albumin 3.8 (3.2-5.2) g/dL Globulin 3.5 (2-4) g/dL Albumin/Globulin Ratio 1.1 (1-3) TSH 3.42 (0.34-5.60) mcIU/mL 03/28/17 03/28/17 Range/Units 11:44 11:44 WBC (3.5-10.8) 10^3/ul RBC (4.0-5.4) 10^6/ul Hgb (14.0-18.0) g/dl Hct (42-52) % MCV (80-94) fL MCH (27-31) pg MCHC (31-36) g/dl RDW (10.5-15) % Plt Count (150-450) 10^3/ul MPV (7.4-10.4) um3 Neut % (Auto) (38-83) % Lymph % (Auto) (25-47) % [place] % (Auto) (1-9) % Eos % (Auto) (0-6) % Baso % (Auto) (0-2) % Absolute Neuts (auto) (1.5-7.7) 10^3/ul Absolute Lymphs (auto) (1.0-4.8) 10^3/ul Absolute Monos (auto) (0-0.8) 10^3/ul Absolute Eos (auto) (0-0.6) 10^3/ul Absolute Basos (auto) (0-0.2) 10^3/ul Absolute Nucleated RBC 10^3/ul Nucleated RBC % INR (Anticoag Therapy) (0.89-1.11) Sodium (133-145) mmol/L Potassium (3.5-5.0) mmol/L Chloride (101-111) mmol/L Carbon Dioxide (22-32) mmol/L Anion Gap (2-11) mmol/L BUN (6-24) mg/dL Creatinine (0.67-1.17) mg/dL Est GFR ( Amer) (>60) Est GFR (Non-Af Amer) (>60) BUN/Creatinine Ratio (8-20) Glucose (70-100) mg/dL Lactic Acid 1.2 (0.5-2.0) mmol/L Calcium (8.6-10.3) mg/dL Magnesium (1.9-2.7) mg/dL Total Bilirubin (0.2-1.0) mg/dL AST (13-39) U/L ALT (7-52) U/L Alkaline Phosphatase (34-104) U/L Troponin I (<0.04) ng/mL B-Natriuretic Peptide 273 H ( - 100) pg/mL Total Protein (6.4-8.9) g/dL Albumin (3.2-5.2) g/dL Globulin (2-4) g/dL Albumin/Globulin Ratio (1-3) TSH (0.34-5.60) mcIU/mL Assess/Plan/Problems-Billing Assessment: 71 yo M p/w afib RVR and intractable back pain - Patient Problems (1) Intractable back pain Comment: resolved (2) Hyponatremia Comment: improved (3) Atrial fibrillation Comment: With RVR stop diltiazem (did not receive 3 of 4 doses) decrease metoprolol from 50 BID to 25 BID 2/2 hypotension digoxin load today then 125mcg tomorrow 500cc NS for relative hypotension (4) Insomnia Comment: Continue trazodone, prn melatonin (5) DVT prophylaxis Comment: antonio
[2017-03-30] MEDS: Metoprolol Tartrate TAB* 25 MG PO SCH (23:36)
[2017-03-30] MEDS: traZODone TAB* 50 MG TAB PO SCH (23:39)
[2017-03-30] MEDS: Lidocaine Patch REMOVE* 1 NOTE MISC SCH (23:50)
[2017-03-31 07:48] VITALS: BP 104/69
[2017-03-31] MEDS: Omeprazole CAP* 20 MG PO SCH (07:57)
[2017-03-31] MEDS: Cyclobenzaprine TAB* 10 MG PO PRN (07:57)
[2017-03-31] MEDS: Acetaminophen TAB* 325 MG PO PRN (07:58)
[2017-03-31] MEDS: Tamsulosin CAP* 0.4 MG PO SCH (07:58)
[2017-03-31] MEDS: Lidocaine PATCH 5%* 1 PATCH TRANSDERM SCH (07:58)
[2017-03-31] MEDS: Apixaban* 5 MG TAB PO SCH (07:58)
[2017-03-31] MEDS: Calcium/Vitamin D TAB 250/125* TAB PO SCH (07:59)
[2017-03-31] MEDS: Gabapentin CAP(*) 300 MG PO SCH (07:59)
[2017-03-31] MEDS: FLUoxetine CAP* 20 MG PO SCH (08:00)
[2017-03-31] MEDS: Metoprolol Tartrate TAB* 25 MG PO SCH (08:00)
[2017-03-31] MEDS ORDERED: Digoxin TAB* 0.125 MG PO SCH (09:00)
--- NOTE | 2017-04-01 10:25 | DS ---
CC: Dr. Berg * DISCHARGE SUMMARY: DATE OF ADMISSION: 03/28/17 DATE OF DISCHARGE: 03/31/17 PRIMARY CARE PROVIDER: Dr. Berg. PRIMARY DIAGNOSIS: Atrial fibrillation with rapid ventricular response. SECONDARY DIAGNOSES: Include: 1. Intractable back pain. 2. Hypomagnesemia. 3. Hyponatremia. 4. Insomnia. 5. Blindness. MEDICATIONS ON DISCHARGE: 1. Trazodone 75 mg at bedtime. 2. Triamcinolone cream daily as needed. 3. Tamsulosin 0.4 mg daily. 4. Omeprazole 20 mg daily. 5. Melatonin 10 mg at bedtime as needed. 6. Lorazepam 1 mg every 6 hours as needed. 7. Ketoconazole topically twice weekly as needed. 8. Ibuprofen 200 mg every 6 hours as needed for pain. 9. [place] 5/325 one tab twice daily as needed for pain. 10. Gabapentin 300 mg in the morning and 200 mg in the evening. 11. Prozac 20 mg daily. 12. Cholecalciferol 5000 units daily. 13. Calcium/vitamin D one tab daily. 14. Eliquis 5 mg twice daily. 15. Metoprolol tartrate 25 mg twice daily, decreased from 50 mg twice daily. 16. Lidocaine 5% patch topically, change every three days. 17. Digoxin 0.125 mg daily. New Medication: Cyclobenzaprine 10 mg 3 times a day as needed for muscle spasm. HISTORY OF PRESENT ILLNESS AND HOSPITAL COURSE: This is a 71-year-old man with past medical history as outlined in the history of present illness on the day of admission with recent hospital stay of 03/14/17 with atrial fibrillation, rapid ventricular response, returned to the hospital with intractable back pain , was found to be in atrial fibrillation with rapid ventricular response, ventricular rate up to 140 beats per minute. Patient was continued on his metoprolol and diltiazem p.o. 30 mg every 6 hours added; however, secondary to low blood pressures, frequently missed doses. The day prior to discharge, he was loaded with digoxin 500 mcg IV and then 250 mcg q. 4 hours for two additional doses for a total of 1000 mcg of digoxin. He was continued on 0.125 mg of digoxin on the day of discharge. He achieved excellent rate control after loading with digoxin, had heart rates less than 100 since 8 p.m. the day prior to discharge and heart rates largely in the 70 to 80s on the day of discharge. He was not discharged on any diltiazem. His metoprolol was decreased from 50 to 25 twice daily. He had relative hypotension with the 50 mg and missed doses occasionally. His back pain completely resolved the day following admission. He took minimal [place], but will be discharged with Flexeril as needed given the intractable nature of the pain that he presented with. There were no complications of this patient's hospital stay. At followup, please: 1. Evaluate for continued heart rate control. Consider digoxin level. 2. No other specific labs or vitals that need followup. Reasons to return to the hospital included but not limited to recurrent or worsening symptoms, chest pain, shortness of breath, nausea, vomiting, lightheadedness, loss of consciousness, fever, chills, or night sweats, palpitations, inability to obtain or tolerate medications discussed with the patient. He acknowledged understanding. [id number]/CPS #: [id number] ABRAN
== END 2017-03-31 16:08 | disposition home or self-care (01) | DRG 309 ==
LOC: ED 11:09 → MEDTELE 12:28 → UNDODISOB 12:30 → OBSVTOIN 03-29 11:21
PROVIDERS: ADMIT Internal Medicine; ATTEND Internal Medicine
DX: I48.91 Unspecified atrial fibrillation (principal); E87.1 Hypo-osmolality and hyponatremia; N17.9 Acute kidney failure, unspecified; I95.9 Hypotension, unspecified; E83.42 Hypomagnesemia; E86.1 Hypovolemia; B35.6 Tinea cruris; F10.14 Alcohol abuse with alcohol-induced mood disorder; M54.9 Dorsalgia, unspecified; G47.00 Insomnia, unspecified; H54.0 Blindness, both eyes; K14.6 Glossodynia; F32.9 Major depressive disorder, single episode, unspecified; Y90.0 Blood alcohol level of less than 20 mg/100 ml; N40.0 Benign prostatic hyperplasia without lower urinary tract symptoms; L21.9 Seborrheic dermatitis, unspecified; B36.0 Pityriasis versicolor; Z85.21 Personal history of malignant neoplasm of larynx; Z85.828 Personal history of other malignant neoplasm of skin; Z85.89 Personal history of malignant neoplasm of other organs and systems; Z79.1 Long term (current) use of non-steroidal anti-inflammatories (NSAID); Z79.899 Other long term (current) drug therapy; Z88.1 Allergy status to other antibiotic agents; Z88.0 Allergy status to penicillin; Z87.891 Personal history of nicotine dependence; N18.9 Chronic kidney disease, unspecified
CPT/HCPCS: 36415; 71010; 72148; 74000; 80048; 80053; 80320; 81003; 83605; 83735; 83880; 84443; 84484; 85025; 85610; 93005; A9270-GY; G0378; G0480; G8978-GP-CJ; G8979-GP-CI; J1160; J1885; J3360